=== PATIENT | male | born 1955 | race Caucasian/White ===

== ENCOUNTER → 2017-10-17 13:24 | Outpatient (CLI) | payer BC, SELFPAY ==
[2017-10-17 14:10] LABS: Basophils % 0.4 % (0.1-2.0); Eosinophils # 0.3 K/mm3 (0.0-0.4); Eosinophils % 3.5 % (0.1-12.0); Hematocrit 48.4 % (42.0-52.0); Hemoglobin 15.8 g/dL (14.1-18.0); Lymphocytes % 23.9 K/mm3 (10-50); Mean Corpuscular HGB Conc 32.7 g/dL (31.8-35.4); Mean Corpuscular Hemoglobin 30.4 pg (27.0-31.2); Mean Platelet Volume 8.7 fl (7.4-10.4); Monocytes # 0.6 K/mm3 (0.1-1.0); Monocytes % 6.8 % (1.7-9.3); Neutrophils # 5.5 K/mm3 (1.8-7.8); Neutrophils % 65.5 % (37.0-80.0); Platelet Count 269 K/mm3 (142-424); Red Cell Distribution Width 13.4 % (11.5-17.5); White Blood Count 8.4 K/mm3 (4.8-10.8)
[2017-10-17 14:15] LABS: Alanine Aminotransferase 13 U/L (12-78); Albumin Level 3.9 gm/dL (3.4-5.0); Alkaline Phosphatase 64 U/L (46-116); Anion Gap 12.1 mEq/L (5-15); Aspartate Amino Transferase 23 U/L (15-37); Bilirubin,Total 0.4 mg/dL (0.2-1.0); Blood Urea Nitrogen 16 mg/dL (7-18); Calcium 8.9 mg/dL (8.5-10.1); Carbon Dioxide 30 mmol/L (21.0-32.0); Chloride 102 mmol/L (98-107); Chol/HDL Ratio 6.3 (1-3.5); Cholesterol 265 mg/dL (140-200); Creatinine,Serum 0.99 mg/dL (0.70-1.30); Estimated Glomerular Filt Rate 77 ml/min (>60); GFR (African American) 93 ML/MIN (>60); Globulin 3.9 gm/dl (1.3-3.2); Glucose 101 mg/dL (74-106); HDL Cholesterol 42 mg/dL (27-67); LDL Cholesterol 175 mg/dL (0-130); Potassium 4.1 mmoL/L (3.5-5.1); Sodium 140 mmol/L (136-145); Total Protein,Serum 7.8 gm/dL (6.4-8.2); Triglycerides 239 mg/dL (30-200); VLDL Cholesterol 48 mg/dL (0-40)
== END ==
PROVIDERS: PCP Nurse Practitioner Family; Visit Provider Nurse Practitioner Family
DX: G20 Parkinson's disease (principal); I10 Essential (primary) hypertension
CPT/HCPCS: 36415; 80053; 80061; 85025

== ENCOUNTER → 2019-10-01 09:37 | Outpatient (CLI) | payer BC, SELFPAY ==
--- NOTE | 2019-10-01 09:54 | US_ITS ---
PROCEDURE: US SOFT TISSUE HEAD AND NECK CLINICAL INDICATION: SUPRCLAVICULAR FOSSA FULLNESS Palpable left neck mass COMPARISON: No exams were available for comparison FINDINGS: In the palpable area of the left neck there is an oval 4 x 3 x 1 cm area somewhat heterogeneous slight decreased echogenicity. This is nonspecific and may be due to a lipoma. No fluid collections or other significant anomalies are apparent. IMPRESSION: 4 x 3 x 1 cm area of heterogeneous echogenicity in the left neck which may be due to a lipoma. The sonographic findings are however nonspecific. Definitive evaluation could be performed with CT if clinically warranted Dictated b Hiram Pruitt MD 10/01/2019 16:53 Hiram Pruitt MD in [place] 10/01/2019 16:53
== END ==
PROVIDERS: PCP Nurse Practitioner Family; Visit Provider Nurse Practitioner Family
DX: R22.2 Localized swelling, mass and lump, trunk (principal)
CPT/HCPCS: 76536

== ENCOUNTER 2019-11-18 11:00 | Outpatient (RCR) | payer BC, SELFPAY ==
--- NOTE | 2019-09-09 10:04 | HMH.PTOPEV ---
PT Outpatient Evaluation Rehab PT Outpatient Evaluation Start: 09/09/19 09:09 Freq: Status: Active Protocol: Document 09/09/19 09:41 FOREIGN (Rec: 09/09/19 10:04 PHORSIMONE [id number]) Electronically Signed By Daniel Dumont, PT 09/09/19 09:41 Outpatient Therapy Subjective History Subjective History Pt is 63 yowm who presents with poor balance, difficulty with transfers, hx of falls, and difficulty ambulating due to Parkinson's disease. He was diagnosed with Parkinson's disease in 1994 and has had progressive decline since that time. He has hx of HTN, but otherwise appears healthy. Chief Complaint Stiff Symptoms Relieved By Nothing Symptoms Aggravated By Standing,Physical Activity, Walking Prior Functional Limitations Standing,Walking,Stairs, Balance Current Functional Limitations Standing,Walking,Stairs, Balance Symptom Description Constant but Variable Balance Eval Hx of Falls Hx Falls Yes Number in last 6 months 5 Gait/Posture Asssessment General Gait Observation Shuffling Step Assistive Devices None / NA Level of Transfer Assist Standby Assistance Hip Observation in Gait Swing Decreased Flexion Hip Observation in Gait Stance Excess Flexion Ankle/Foot Observation in Gait Swing Decreased Foot Clearance Ankle/Foot Observation in Gait Stance Early Heel Off,Decreased Heel Strike Body Alignment Posture Rigid Timed Up and Go Test 1. Is the Timed Up and Go test result > yes or = to 12 seconds? Dynamic Gait Index Test Protocol Gait Level Surface Moderate Impairement Query Text: Instructions: Walk at your normal speed from here to the next kaleb (20'). Grading: Kaleb the lowest category that applies. Change in Gait Speed Moderate Impairment Query Text: Instructions: Begin walking at your normal pace (for 5'), when I tell you go , walk as fast as you can (for 5'). When I tell you slow , walk as slowly as you can (for 5'). Grading: Kaleb the lowest category that applies. Gait with Horizontal Head Turns Moderate Impairment Query Text: Instructions: Begin walking at your normal pace. When I tell you to look right , keep walking straight, but turn you head to the right. Keep looking to the right unit I tell you look left , then keep walking str
--- NOTE | 2019-10-07 13:54 | HMH.RHREAS ---
Rehab Reassessment Rehab OP Re-assessment Start: 10/07/19 13:48 Freq: Status: Active Protocol: Document 10/07/19 13:51 FOREIGN (Rec: 10/07/19 13:54 FOREIGN [id number]) Electronically Signed By Daniel Dumont, PT 10/07/19 13:51 Rehab Re-assessment Subjective Subjective Pt reports he feels a little better with balance and walking. Objective Objective Notes DGI: 01/11 MMT B LE grossly 4+/5 throughout Gait: continued short stride B with shuffling, festinating gait pattern. Assessment Progress Assessment Progressing as Expected Assessment Notes Pt with improved mobility overall and longer stride lengths. Continues to need further work on upper/lower body dissociation. Patient goals met ST,2,[address],5,6 LT,2,3,4,5,6 Revised Goals none Plan Plan Continue per initial POC. Frequency of Therapy 2x/wk Duration of therapy 8 wks Time and Billing Re-Eval Time 15 Re-Eval Billing Units 1 PHYSICIAN CERTIFICATION: I certify the specified therapy services for Lauro Lora are required, authorized, and reviewed every 30 days.
== END 2019-11-18 11:05 | disposition home or self-care (01) ==
LOC: PT 11:00
PROVIDERS: PCP Nurse Practitioner Family; Visit Provider Nurse Practitioner Family
DX: G20 Parkinson's disease (principal); R29.6 Repeated falls
CPT/HCPCS: 97113; 97163; 97164

== ENCOUNTER 2020-01-08 13:01 | Emergency (ER) | payer BC, SELFPAY ==
[2020-01-08 14:25] VITALS: BP 145/78; PULSE 89; RESP 18; TEMP 36.9; O2SAT 98; BMI 41.0
--- NOTE | 2020-01-08 14:33 | HMH.EDUTC ---
[facility] [place] Clinical Impression: Exposure to COVID-19 virus, Viral syndrome Disposition: Home, Self-Care Condition on Discharge: Good Instructions: Preventing the Spread of Coronavirus Discharge Instructions Additional Instructions: Drink plenty of fluids. Take tylenol for pain or fever. Return if you begin to have difficulty breathing. Follow up with your regular doctor. GO TO THE ER FOR ANY WORSENING SYMPTOMS Referrals: Deedee Prince APRN [Primary Care Provider] - Time of Disposition: 14:39 Medical Decision Making - Medical Records Medical records reviewed: No: I reviewed the patient's medical records. - Joselito Inquiry Pt receiving controlled substance: No Vital Signs: 01/08/20 14:25 01/08/20 14:45 Temperature 98.4 F 98.4 F Temperature Source Oral Pulse Rate 89 Pulse Rate [Right Brachial] 89 Respiratory Rate 18 18 Blood Pressure 145/78 H Blood Pressure [Right Arm] 145/78 H Blood Pressure Mean [Right Arm] 100 Blood Pressure Source [Right Arm] Automatic Cuff Blood Pressure Position [Right Arm] Sitting 02 Sat by Pulse Oximetry 98 Oxygen Delivery Method Room Air Orders (Tests/Meds): ORDERS Category Date Time Status Covid-19 Nasal PCR ([facility]) Routine Lab 01/08/20 14:20 Received [facility] [place] HPI - General Stated complaint: Covid test Time Seen by Provider: 01/08/20 14:33 - History of Present Illness Provider Complaint: He denies any known exposure to covid-19. He has been having some sinus congestion for the past couple of days. - Related Data Home Medications Medication Instructions Recorded Confirmed Carbidopa/Levodopa 1 each PO DAILY 01/08/20 01/08/20 [Carbidopa/Levodopa 25/100mg Tablet] Venlafaxine HCl [Effexor XR 75mg 75 mg PO DAILY 01/08/20 01/08/20 capsule] Allergies Allergy/AdvReac Type Severity Reaction Status Date / Time No Known Allergies Allergy Verified 01/08/20 14:34 [facility] History - Hepatitis A Screen Attestation statement:: This patient has been screened for Hepatitis A risk factors. I have reviewed the patient's past medical history: Yes ROS Obtained: Yes All systems reviewed & no additional complaints - Constitutional Constitutional: Reports system reviewed and no additional complaints, except as docu - Eyes Eyes: Reports system reviewed and no additional complaints, except as docu - ENT Ears, Nose, Mouth, and Throat: Reports system reviewed and no additional complaints, except as docu - Cardiovascular Cardiovascular: Reports system reviewed and no additional complaints, except as docu - Respiratory Respiratory: Yes system reviewed and no additional complaints, except as docu - Gastrointestinal Gastrointestingal: Reports: system reviewed and no additional complaints, except as docu Physical Exam - General General appearance: alert, in no apparent distress - Head Head exam: atraumatic, normocephalic, normal inspection - Eye Eye exam: Present: normal appearance, PERRL, EOMI - ENT ENT exam: Present: normal exam, normal oropharynx, mucous membranes moist, TM's normal bilaterally, normal external ear exam - Neck Neck exam: Present: normal inspection, full ROM, trachea midline. Absent: meningismus, lymphadenopathy - Chest Chest inspection: Present: normal inspection, symmetric chest wall rise. Absent: tenderness - Respiratory Respiratory exam: Present: normal lung sounds bilaterally. Absent: respiratory distress - Cardiovascular Cardiovascular exam: Present: regular rate, normal rhythm. Absent: JVD - Abdominal Exam Abdominal exam: Present: soft, normal bowel sounds. Absent: distention, tenderness, guarding - Extremities Exam Extremities exam: Present: normal inspection, full ROM, normal capillary refill. Absent: calf tenderness - Back Exam Back exam: Present: normal inspection. Absent: tenderness - Neurological Exam Neurological exam: Present: alert, oriented X3
[2020-01-08 14:45] VITALS: BP 145/78; PULSE 89; RESP 18; TEMP 36.9; O2SAT 98
== END 2020-01-08 14:48 | disposition home or self-care (01) ==
PROVIDERS: Emergency Provider Nurse Practitioner Family; PCP Nurse Practitioner Family
DX: Z20.828 Contact with and (suspected) exposure to other viral communicable diseases (principal); B34.9 Viral infection, unspecified
CPT/HCPCS: 99201; U0003

== ENCOUNTER 2020-03-08 19:57 | Inpatient (IN) | payer BC, OTHER, SELFPAY ==
[2020-03-08 20:08] VITALS: BP 172/99; PULSE 108; RESP 18; TEMP 36.8; O2SAT 92; BMI 41.0
--- NOTE | 2020-03-08 20:22 | XR_ITS ---
PROCEDURE: XR CHEST PORTABLE CLINICAL HISTORY: cough Covid19 COMPARISON: No exams were available for comparison FINDINGS: There are low lung volumes with mild cardiomegaly. Patchy consolidation is present in the midlung zone on both sides. No obvious effusion. No acute bony abnormalities. IMPRESSION: Bilateral pneumonia Dictated by: Hiram Pruitt MD 03/09/2020 06:39 Hiram Pruitt MD in [place] 03/09/2020 06:39
--- NOTE | 2020-03-08 20:22 | CT_ITS ---
PROCEDURE: CT ANGIO CHEST CLINCIAL INDICATION: SOA Positive COVID Shortness of breath, Covid19 positive COMPARISON: CR XR CHEST PORTABLE from 03/08/2020 TECHNIQUE: IV Contrast: 70ML Isovue 370 Axial images obtained with sagittal and coronal reformats. All CT scans at the facility use one or more dose reduction, viz: automated exposure control, ma/kV adjustment per patient size (including targeted exams where dose is matched to indication, i.e. head), or iterative reconstruction technique. FINDINGS: HEART AND MEDIASTINAL STRUCTURES: No evidence of pulmonary embolus, aortic aneurysm, or aortic dissection. Small right paratracheal lymph node at 1.3 cm LUNGS AND PLEURAL SPACES: Multi focal bilateral areas of ground-glass infiltrate in both upper and lower lobes in keeping with Covid19 pneumonia. No effusions BONY STRUCTURES: No acute bony abnormalities apparent. UPPER ABDOMEN: Unremarkable. ADDITIONAL FINDINGS: No other significant abnormalities. IMPRESSION: 1. No evidence of pulmonary embolus. 2. Multifocal bilateral ground-glass infiltrates consistent with Covid19 pneumonia Dictated by: Hiram Pruitt MD 03/09/2020 07:35 Hiram Pruitt MD in [place] 03/09/2020 07:35
[2020-03-08 20:30] VITALS: BP 176/80; PULSE 96; RESP 15; O2SAT 90
[2020-03-08 20:30] LABS: Basophils # 0.1 K/mm3 (0-0.2); Basophils % 0.4 % (0.1-2.0); Eosinophils # 0.1 K/mm3 (0.0-0.4); Eosinophils % 0.4 % (0.1-12.0); Hemoglobin 16.4 g/dL (14.1-18.0); Lymphocytes # 1.4 K/mm3 (0.7-4.5); Lymphocytes % 6.9 % (10-50); Mean Corpuscular HGB Conc 34.1 g/dL (31.8-35.4); Mean Corpuscular Hemoglobin 31.2 pg (27.0-31.2); Mean Corpuscular Volume 91.5 fl (80-94); Mean Platelet Volume 9.8 fl (7.4-10.4); Monocytes # 1.4 K/mm3 (0.1-1.0); Monocytes % 6.6 % (1.7-9.3); Neutrophils # 17.4 K/mm3 (1.8-7.8); Neutrophils % 85.7 % (37.0-80.0); Platelet Count 280 K/mm3 (142-424); Red Blood Count 5.25 M/mm3 (4.60-6.20); Red Cell Distribution Width 14.2 % (11.5-17.5); White Blood Count 20.3 K/mm3 (4.8-10.8)
[2020-03-08 20:35] LABS: Alanine Aminotransferase 20 U/L (12-78); Albumin Level 4.1 g/dl (3.5-5.0); Albumin/Globulin Ratio 1.1 (1.1-1.8); Alkaline Phosphatase 74 U/L (38-126); Anion Gap 13.8 mEq/L (5-15); Aspartate Amino Transferase 34 U/L (17-59); Bilirubin,Total 0.7 mg/dl (0.2-1.3); Blood Urea Nitrogen 29 mg/dl (9-20); Calcium 8.9 mg/dl (8.4-10.2); Carbon Dioxide 28 mmol/L (22.0-30.0); Chloride 98 mmol/L (98-107); Creatinine Clearance Estimated 131 mL/min (50-200); Estimated Glomerular Filt Rate 98 ml/min (>60); GFR (African American) 118 ML/MIN (>60); Globulin 3.8 g/dL (1.3-3.2); Glucose 100 mg/dl (74-100); Potassium 3.8 mmoL/L (3.5-5.1); Sodium 136 mmol/L (136-145); Total Protein,Serum 7.9 g/dl (6.3-8.2)
[2020-03-08 20:40] LABS: C-Reactive Protein 59.9 mg/L (0-4)
[2020-03-08 20:41] LABS: MANUAL DIFFERENTIAL MANUAL DIFFERENTIAL (MANUAL DIFF)
--- NOTE | 2020-03-08 20:52 | HMH.EDSOB ---
ED Disposition Clinical Impression: Pneumonia due to COVID-19 virus, Hypoxia, Parkinson disease Obesity Qualifiers: Obesity type: due to excess calories Obesity classification: adult class 3 (BMI >= 40) Serious obesity comorbidity presence: with serious comorbidity Body mass index: BMI 40.0-44.9 Qualified Code(s): E66.01 - Morbid (severe) obesity due to excess calories; Z68.41 - Body mass index [BMI]40.0-44.9, adult Disposition: Admitted As Inpatient Condition on Discharge: Serious - Critical Care Critical Care Time: No Attestation: On 03/08/20, the high probability of a clinically significant, sudden or life threatening deterioration of the following system(s) required my full and direct attention, intervention and personal management. The time I documented below is in addition to time spent performing reported procedures but includes the following listed in this critical care notation. Medical Decision Making - Medical Records Medical records reviewed: Yes: I reviewed the patient's medical records. - Joselito Inquiry Pt receiving controlled substance: No Vital Signs: 03/08/20 20:08 03/08/20 20:30 03/08/20 21:00 Temperature 98.2 F Temperature Source Oral Pulse Rate [Right] 108 H 96 H 81 Respiratory Rate 18 15 15 Blood Pressure [Right Arm] 172/99 H 176/80 H 152/91 H Blood Pressure Mean [Right Arm] 123 112 111 Blood Pressure Source [Right Arm] Automatic Cuff Automatic Cuff Automatic Cuff Blood Pressure Position [Right Arm] Supine Supine Supine 02 Sat by Pulse Oximetry 92 L 90 L 89 L Oxygen Delivery Method Room Air Room Air Room Air Oxygen Flow Rate (LPM) 03/08/20 22:30 03/08/20 23:00 03/08/20 23:30 Temperature Temperature Source Pulse Rate [Right] 86 78 77 Respiratory Rate 16 17 17 Blood Pressure [Right Arm] 141/85 H 136/82 125/78 Blood Pressure Mean [Right Arm] 103 100 93 Blood Pressure Source [Right Arm] Automatic Cuff Automatic Cuff Automatic Cuff Blood Pressure Position [Right Arm] Supine Supine Supine 02 Sat by Pulse Oximetry 97 95 95 Oxygen Delivery Method Nasal Cannula Nasal Cannula Nasal Cannula Oxygen Flow Rate (LPM) 2 2 2 03/09/20 00:00 Temperature Temperature Source Pulse Rate [Right] 78 Respiratory Rate 17 Blood Pressure [Right Arm] 130/75 Blood Pressure Mean [Right Arm] 93 Blood Pressure Source [Right Arm] Automatic Cuff Blood Pressure Position [Right Arm] Supine 02 Sat by Pulse Oximetry 94 L Oxygen Delivery Method Nasal Cannula Oxygen Flow Rate (LPM) 2 - Lab Data Lab results reviewed: Yes: I reviewed the patient's lab results. Lab Results 03/08/20 20:05: WBC 20.3 H*, RBC 5.25, Hgb 16.4, Hct 48.0, MCV 91.5, MCH 31.2, MCHC 34.1, RDW 14.2, Plt Count 280, MPV 9.8, Neut % (Auto) 85.7 H, Lymph % (Auto) 6.9 L, [place] % (Auto) 6.6, Eos % (Auto) 0.4, Baso % (Auto) 0.4, Neut # (Auto) 17.4 H, Lymph # (Auto) 1.4, [place] # (Auto) 1.4 H, Eos # (Auto) 0.1, Baso # (Auto) 0.1, Total Counted 100, Neutrophils % (Manual) 87 H, Lymphocytes % (Manual) 7 L, Monocytes % (Manual) 6, Platelet Estimate Normal, RBC Morphology Normal, ESR 9 03/08/20 20:05: Sodium 136, Potassium 3.8, Chloride 98, Carbon Dioxide 28, Anion Gap 13.8, BUN 29 H, Creatinine 0.80, Estimated Creat Clear 131, Estimated GFR 98, Est GFR ( Amer) 118, Glucose 100, Calcium 8.9, Total Bilirubin 0.7, AST 34, ALT 20, Alkaline Phosphatase 74, C-Reactive Protein 59.9 H, Total Protein 7.9, Albumin 4.1, Globulin 3.8 H, Albumin/Globulin Ratio 1.1, Procalcitonin 0.076 03/08/20 20:05: SARS-CoV-2 IgG Ab (Rapid) Positive A, SARS-CoV-2 IgM Ab (Rapid) Negative 03/08/20 22:30: Chlamy pneumoniae PCR Not detected, Adenovirus (PCR) Not detected, B. pertussis DNA (PCR) Not detected, Coronavirus OC43 (PCR) Not detected, Coronavirus HKU1 (PCR) Not detected, Coronavirus 229E (PCR) Not detected, SARS-CoV-2 (PCR) Detected A, Coronavirus NL63 (PCR) Not detected, Human Metapneumovir PCR Not detected, Influenza A (H1) PCR Not detected, Influ A (H1N1/09) PCR Not d
[2020-03-08 20:53] LABS: Procalcitonin 0.076 ng/mL (0.0-2.0)
[2020-03-08 20:57] LABS: Erythrocyte Sedimentation Rate 9 mm/hr (0-20)
[2020-03-08 21:00] VITALS: BP 152/91; PULSE 81; RESP 15; O2SAT 89
[2020-03-08 21:07] LABS: Lymphocytes % 7 % (10-50); Monocytes % 6 % (2-9); Neutrophils % 87 % (42-76); Platelet Estimate Normal; RBC Morphology Normal; Total Cells Counted 100
[2020-03-08 22:13] LABS: Coronavirus 19 IgG Antibody Positive (Negative); Coronavirus 19 IgM Antibody Negative (Negative)
[2020-03-08 22:30] VITALS: BP 141/85; PULSE 86; RESP 16; O2SAT 97
--- NOTE | 2020-03-08 22:30 | PC.NURSE ---
nasal swab for inpatient covid swab completed and sent to lab
[2020-03-08 22:34] LABS: Adenovirus,PCR Not Detected (NotDetected); Bordetella Pertussis Not Detected (NotDetected); Chlamydophila Pneumoniae, PCR Not Detected (NotDetected); Coronavirus 229E Not Detected (NotDetected); Coronavirus NL63 Not Detected (NotDetected); Coronavirus OC43 Not Detected (NotDetected); Coronovirus HKU1,PCR Not Detected (NotDetected); Human Metapneumovirus Not Detected (NotDetected); Influenza A, PCR Not Detected (NotDetected); Influenza AH1, 2009 Not Detected (NotDetected); Influenza AH1, PCR Not Detected (NotDetected); Influenza AH3,PCR Not Detected (NotDetected); Influenza B, PCR Not Detected (NotDetected); Mycoplasma Pneumoniae, PCR Not Detected (NotDetected); Parainfluenza 1, PCR Not Detected (NotDetected); Parainfluenza 2, PCR Not Detected (NotDetected); Parainfluenza 3, PCR Not Detected (NotDetected); Parainfluenza 4, PCR Not Detected (NotDetected); Respiratory Syncytial Virus Not Detected (NotDetected); Rhinovirus/Enterovirus Not Detected (NotDetected)
--- NOTE | 2020-03-08 22:34 | PC.NURSE ---
Password was set up with it is Monkey
--- NOTE | 2020-03-08 22:34 | PC.NURSE ---
called for bed assignment for patient. spoke with ken ramoscharge rn.
[2020-03-08 23:00] VITALS: BP 136/82; PULSE 78; RESP 17; O2SAT 95
[2020-03-08 23:30] VITALS: BP 125/78; PULSE 77; RESP 17; O2SAT 95
[2020-03-09] VITALS (9 sets, daily range): BP systolic 130–155; BP diastolic 70–96; PULSE 73–93; RESP 15–22; TEMP 36.4–37.1; O2SAT 92–98; BMI 40.9
[2020-03-09] LABS: Coronavirus 19, PCR Detected (NotDetected)
--- NOTE | 2020-03-09 00:21 | PC.NURSE ---
patient up to floor via wheelchair.
[2020-03-09 05:38] LABS: Basophils % 0.1 % (0.1-2.0); Hematocrit 43.7 % (42.0-52.0); Lymphocytes # 0.6 K/mm3 (0.7-4.5); Lymphocytes % 3.1 % (10-50); Mean Corpuscular HGB Conc 34.3 g/dL (31.8-35.4); Mean Corpuscular Volume 93.1 fl (80-94); Mean Platelet Volume 10.4 fl (7.4-10.4); Monocytes % 4.9 % (1.7-9.3); Neutrophils # 18.6 K/mm3 (1.8-7.8); Neutrophils % 91.8 % (37.0-80.0); Platelet Count 244 K/mm3 (142-424); Red Cell Distribution Width 14.3 % (11.5-17.5); White Blood Count 20.3 K/mm3 (4.8-10.8)
[2020-03-09 05:42] LABS: MANUAL DIFFERENTIAL MANUAL DIFFERENTIAL (MANUAL DIFF)
[2020-03-09 05:43] LABS: Chloride 100 mmol/L (98-107); Potassium 3.8 mmoL/L (3.5-5.1); Sodium 135 mmol/L (136-145)
[2020-03-09 05:45] LABS: Blood Urea Nitrogen 24 mg/dl (9-20); Creatinine Clearance Estimated 131 mL/min (50-200); Estimated Glomerular Filt Rate 114 ml/min (>60); GFR (African American) 138 ML/MIN (>60)
[2020-03-09 05:46] LABS: Alanine Aminotransferase 14 U/L (12-78); Albumin Level 3.5 g/dl (3.5-5.0); Albumin/Globulin Ratio 1.1 (1.1-1.8); Alkaline Phosphatase 67 U/L (38-126); Anion Gap 8.8 mEq/L (5-15); Aspartate Amino Transferase 33 U/L (17-59); Bilirubin,Total 0.6 mg/dl (0.2-1.3); Calcium 8.5 mg/dl (8.4-10.2); Carbon Dioxide 30 mmol/L (22.0-30.0); Globulin 3.2 g/dL (1.3-3.2); Glucose 153 mg/dl (74-100); Magnesium 2.1 mg/dl (1.6-2.3); Total Protein,Serum 6.7 g/dl (6.3-8.2)
--- NOTE | 2020-03-09 06:17 | PC.NURSE ---
Pt is A&Ox4. Pt has remained on 2L NC w/ o2 sats between 92-93%. Bilat upper lobes present w/ inspiratory and expiratory wheezing. Bilat lower lobes present with inspiratory and expiratory rhonchi. Breathing is even and nonlabored. +1 pitting edema at bilat ankles. Active bowel sounds in all 4 quads. No BM noted this shift. PIV remains patent and continues to infuse NS @ 50 ml/hr. No acute changes or complaints.
--- NOTE | 2020-03-09 07:24 | HMH.PHAVTE ---
[facility] Pharmacy VTE Monitoring - Patient Demographics Admission date: 03/08/20 Report Date: 03/09/20 Time: 07:24 Allergies/Adverse Reactions: Patient Allergies No Known Allergies Allergy (Verified 01/08/20 14:34) Height: 1.73 m Weight: 122.215 kg Patient Problems: Current Active Problems Pneumonia due to COVID-19 virus (Acute) Hypoxia (Acute) Parkinson disease (Acute) Obesity (Acute) - VTE Risk Labs: VTE Related Lab Results Hgb 15.0 g/dL (14.1-18.0) 03/09/20 04:20 Hct 43.7 % (42.0-52.0) 03/09/20 04:20 Plt Count 244 K/mm3 (142-424) 03/09/20 04:20 BUN 24 mg/dl (9-20) H 03/09/20 04:20 Creatinine 0.70 mg/dl (0.66-1.25) 03/09/20 04:20 Estimated Creat Clear 131 mL/min (50-200) 03/09/20 04:20 VTE Score: 4 VTE Risk Level: Low Risk - Prophylaxis VTE Prophylaxis Ordered?: Yes Types of VTE Prophylaxis: TEDS Knee High, Pharmacological Location of Applied Device: Bilateral Lower Extremeties Pharmacologic Type: Enoxaparin
--- NOTE | 2020-03-09 08:25 | HMH.HP ---
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 He worsened and had lots of shortness of air, came to the emergency department, had new oxygen requirement and was admitted to hospital for oxygenation, fluids and further diagnostic testing and respiratory support. [facility] History Medical History: Reports:: Hyperlipidemia, Hypertension Denies:: Cancer, Diabetes Mellitus Type 1, Diabetes Mellitus Type 2, MRSA *Have you ever received a pneumonia vaccine?: No *Have you received a flu vaccine this season?: No Comment:: Parkinson's disease. Major depression with multiple psychiatric comorbidities Other Surgeries: Yes: No Previous Surgery Amputation: No - *Social History Last grade of school completed: Some college Smoking Status: Never smoker Alcohol Intake: former Alcohol Intake Frequency:: holidays/special occasions only *Occupational Status:: disabled Household Members: significant other *Travel in the last 8 weeks: None Family Hx:: Cancer, Coronary Artery Disease, Diabetes, Hypertension, Stroke Review of Systems - Review of Systems Review of systems:: pertinent systems reviewed and negative unless documented below - Constitutional Reports anorexia, Reports fatigue, Reports fever(s) - ENT Reports dizziness, Reports dry mouth, Denies abnormal hearing, Denies poor balance - *Cardiovascular Reports shortness of breath, Reports shortness of breath with activity, Denies chest pain, Denies irregular heart rhythm - *Respiratory Reports chest congestion, Reports cough, Reports shortness of breath with activity, Denies coughing up blood - *Gastrointestinal Reports loose stools, Denies abdominal pain - *Genitourinary Denies difficulty urinating - *Neurologic Reports weakness, Denies localized weakness, Denies headache(s) Meds Home Medications Medication Instructions Recorded Confirmed Type Carbidopa/Levodopa 2 each PO TID 01/08/20 03/08/20 History [Carbidopa/Levodopa 25/100mg Tablet] Venlafaxine HCl [Effexor XR 75mg 150 mg PO DAILY 01/08/20 03/08/20 History capsule] Amoxicillin [Amoxicillin 875MG 875 mg PO Q12H 03/08/20 03/08/20 History Tab] Benzonatate [Benzonatate 200mg Cap] 225 mg PO TID PRN 03/08/20 03/08/20 History Ergocalciferol (Vitamin D2) 1,250 mcg PO BID 03/08/20 03/08/20 History [Vitamin D2] dexAMETHasone [Decadron 4mg tablet] 4 mg PO BID 03/08/20 03/08/20 History Allergies Allergy/AdvReac Type Severity Reaction Status Date / Time No Known Allergies Allergy Verified 01/08/20 14:34 Exam Vital signs and Labs for Last 24 Hours: Temp Pulse Resp BP Pulse Ox 98.7 F 93 H 22 144/78 H 93 L 03/09/20 08:00 03/09/20 08:00 03/09/20 08:00 03/09/20 08:00 03/09/20 08:00 Laboratory Results - last 24 hr 03/08/20 20:05: WBC 20.3 H*, RBC 5.25, Hgb 16.4, Hct 48.0, MCV 91.5, MCH 31.2, MCHC 34.1, RDW 14.2, Plt Count 280, MPV 9.8, Neut % (Auto) 85.7 H, Lymph % (Auto) 6.9 L, [place] % (Auto) 6.6, Eos % (Auto) 0.4, Baso % (Auto) 0.4, Neut # (Auto) 17.4 H, Lymph # (Auto) 1.4, [place] # (Auto) 1.4 H, Eos # (Auto) 0.1, Baso # (Auto) 0.1, Total Counted 100, Neutrophils % (Manual) 87 H, Lymphocytes % (Manual) 7 L, Monocytes % (Manual) 6, Platelet Estimate Normal, RBC Morphology Normal, ESR 9 03/08/20 20:05: Sodium 136, Potassium 3.8, Chloride 98, Carbon Dioxide 28, Anion Gap 13.8, BUN 29 H, Creatinine 0.80, Estimated Creat Clear 131, Estimated GFR 98, Est GFR ( Amer) 118, Glucose 100, Calcium 8.9, Total Bilirubin 0.7, AST 34, ALT 20, Alkaline Phosphatase 74, C-Reactive Protein 59.9 H, Total Protein 7.9, Albumin 4.1, Globulin 3.8 H, Albumin/Globulin Ratio 1.
[2020-03-09 09:12] LABS: Lymphocytes % 3 % (10-50); Monocytes % 4 % (2-9); Neutrophils % 93 % (42-76); RBC Morphology Normal; Total Cells Counted 100
[2020-03-09 09:13] LABS: Platelet Estimate Normal
--- NOTE | 2020-03-09 12:17 | HMH.PHAINT ---
MEDICATION RECONCILIATION COMPLETED ON PATIENT USING EXTERNAL FILL HISTORY FROM PHARMACY. -PIERO HANSON, BEAUD
--- NOTE | 2020-03-09 19:00 | PC.NURSE ---
A&OX4. PT HAS TOLERATED 2L NC WELL THROUGHOUT SHIFT. RHONCHI NOTED THROUGHOUT. NO COUGH NOTED. RESPIRATIONS REGULAR AND UNLABORED. HAND EMBEDDED SYSTEMS DEVELOPER EQUAL. +2 PULSES NOTED THROUGHOUT. NO EDEMA NOTED. PT RECEIVED SEVERAL ANTIBIOTICS THIS SHIFT AND TOLERATED ALL WELL. ACTIVE BOWEL SOUNDS HEARD IN ALL 4 QUADRANTS. SOFT AND NONTENDER ABDOMEN. PT HAS HAD 2 SOFT BROWN BMS THIS SHIFT. PT VOIDS PER TOILET W STANDBY ASSISTANCE. CLEAR YELLOW URINE NOTED. NO REPORTS OF PAIN THROUGHOUT SHIFT. PT SAT UP TO THE CHAIR SEVERAL TIMES THROUGHOUT SHIFT. BED IN LOWEST POSITION. CALL LIGHT WITHIN REACH. VSS. WILL CONTINUE TO MONITOR.
--- NOTE | 2020-03-09 22:54 | PC.NURSE ---
2100 COURTESY ROUND TRASH EMPTIED AND GLOVES REFILLED.
[2020-03-10] VITALS: BP 124/62; PULSE 88; RESP 19; TEMP 36.7; O2SAT 94
[2020-03-10 04:00] VITALS: BP 154/90; PULSE 90; RESP 19; TEMP 36.7; O2SAT 93
[2020-03-10 05:17] VITALS: BMI 40.8
--- NOTE | 2020-03-10 05:22 | PC.NURSE ---
pt is alert and oriented. ambulates with standby assist. remains stable on 2LNC. iv patent and infusing per order. vss. no complaints voiced. slept through most of shift. call light in reach. will continue to monitor pt condition.
--- NOTE | 2020-03-10 06:57 | PC.NURSE ---
0600 COURTESY ROUND TRASH EMPTIED AND WATER REFILLED
[2020-03-10 07:06] LABS: Alanine Aminotransferase 18 U/L (12-78); Albumin Level 3.7 g/dl (3.5-5.0); Albumin/Globulin Ratio 1.1 (1.1-1.8); Alkaline Phosphatase 69 U/L (38-126); Anion Gap 11.7 mEq/L (5-15); Aspartate Amino Transferase 46 U/L (17-59); Bilirubin,Total 0.7 mg/dl (0.2-1.3); Blood Urea Nitrogen 25 mg/dl (9-20); Calcium 8.5 mg/dl (8.4-10.2); Carbon Dioxide 28 mmol/L (22.0-30.0); Chloride 98 mmol/L (98-107); Creatinine Clearance Estimated 131 mL/min (50-200); Estimated Glomerular Filt Rate 114 ml/min (>60); GFR (African American) 138 ML/MIN (>60); Globulin 3.3 g/dL (1.3-3.2); Glucose 90 mg/dl (74-100); Potassium 3.7 mmoL/L (3.5-5.1); Sodium 134 mmol/L (136-145)
[2020-03-10 07:45] VITALS: BP 152/97; PULSE 91; RESP 24; TEMP 37.6; O2SAT 92
--- NOTE | 2020-03-10 08:44 | HMH.DCSUM ---
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 He worsened and had lots of shortness of air, came to the emergency department, had new oxygen requirement and was admitted to hospital for oxygenation, fluids and further diagnostic testing and respiratory support. Hospital Course Hospital Course: Patient was admitted, placed on standard COVID-19 protocols. Patient did well and when I examined him yesterday evening was sitting on the side of the bed, feeling good with oxygen and feeling much better than he had in weeks. He was watched overnight, fluids and oxygen were given. This morning he is doing well, nurses report that he requires a little bit of standby assist when he stands up but is able to do most of his ADLs. Certainly has Parkinson's disease complicates his status. Patient is cleared for discharge and wishes to go home. He will be discharged with azithromycin, dexamethasone and vitamin therapy. He will follow-up in our office in 1 week. He will continue on oxygen therapy for his Covid pneumonitis and hypoxia. Objective Vital signs: Temp Pulse Resp BP Pulse Ox 99.7 F H 91 H 24 152/97 H 92 L 03/10/20 07:45 03/10/20 07:45 03/10/20 07:45 03/10/20 07:45 03/10/20 07:45 Narrative: Patient is pleasant, masked facies compromises his neuro exam no acute distress - *Routine HEENT Exam Head: Present: normocephalic Eye: Present: EOMI, PERRL ENT: Present: mucous membranes moist - *Routine Neck Exam Present: supple - *Routine Respiratory Exam Present: rhonchi - *Routine Cardiovascular Exam Present: RRR - *Routine Abdominal Exam Present: soft, normoactive bowel sounds. Absent: tenderness - *Routine Extremities Exam Absent: cyanosis, clubbing, edema - *Routine Skin Exam Present: warm. Absent: rash - *Routine Neurological Exam Present: alert Patient is stiff, some cogwheeling, but at baseline from his parkinsonism - Detailed Eye Exam Eyelids: Bilateral normal inspection Results Labs on day of discharge: Labs from last 24 hours 03/10/20 03/09/20 06:35 04:20 Total Counted 100 Neutrophils % (Manual) 93 H Lymphocytes % (Manual) 3 L Monocytes % (Manual) 4 Platelet Estimate Normal RBC Morphology Normal Sodium 134 L Potassium 3.7 Chloride 98 Carbon Dioxide 28 Anion Gap 11.7 BUN 25 H Creatinine 0.70 Estimated Creat Clear 131 Estimated GFR 114 Est GFR ( Amer) 138 Glucose 90 Calcium 8.5 Total Bilirubin 0.7 AST 46 D ALT 18 D Alkaline Phosphatase 69 Total Protein 7.0 Albumin 3.7 Globulin 3.3 H Albumin/Globulin Ratio 1.1 DS: Diagnosis - Discharge Diagnosis (1) Hypoxia Status: Acute (2) Obesity Status: Chronic (3) Parkinson disease Status: Chronic (4) Pneumonia due to COVID-19 virus Status: Acute Discharge Plan - Patient Discharge Instructions ACTIVITY: Continue current activity DIET: continue same diet Patient Instructions: Pneumonia-Adult, DI for COVID-19 (Suspected or Confirmed ), Preventing the Spread of Coronavirus Discharge Instructions - Follow up Plan Follow up with: Deedee Prince APRN [Primary Care Provider] - 1 week Disposition: Home Health Service Home Medications: Home Medications Medication Instructions Recorded Confirmed Type Carbidopa/Levodopa 2 each PO TID 01/08/20 03/08/20 History [Carbidopa/Levodopa 25/100mg Tablet] Venlafaxine HCl [Effexor XR 75mg 225 mg PO DAILY 01/08/20 03/09/20 History capsule] Amoxicillin [Amoxicillin 875MG 875 mg PO Q12H 03/08/20 03/08/20 History Tab] Be
--- NOTE | 2020-03-10 10:08 | SW/DCPLANNER ---
Addendum entered by Joanne Lewis 03/10/20 10:49: [facility] HAS ACCEPTED THE REFERRAL... INFORMATION AND ORDERS WERE SENT.... Original Note: PATIENT IS DISCHARGING HOME TODAY AND IS REQUIRING HOME 02... THIS WAS SET UP PER CHOICE WITH [facility].. HE HAS A HOME HEALTH ORDER IN AND IS A COMMERCIAL INSURANCE.. I HAVE ASKED A COUPLE OF DIFFERENT AGENCIES TO SEE IF THEY CAN TAKE HIM SINCE HE IS COVID POSITIVE AND NOT ALL AGENCIES HAS A CONTRACT WITH HIS ANTHEM, WAITING TO HEAR BACK...WILL DISCHARGE HOME LATER IN THE AM...
--- NOTE | 2020-03-10 11:02 | PC.NURSE ---
THIS RN ASSESSED PATIENT O2 STATS ON ROOM AIR, PATIENT READ AT 83%. THIS RN APPLIED OXYGEN AND PATIENT READ AT 91% ON 3L NC.
[2020-03-10 12:00] VITALS: BP 159/96; PULSE 91; RESP 21; TEMP 37.1; O2SAT 94
--- NOTE | 2020-03-10 15:10 | PC.NURSE ---
THIS RN PROVIDED D/C INSTRUCTIONS TO PATIENT. PATIENT VERBALIZED AN UNDERSTANDING. THIS RN PROVIDED EDUCATION ON PATIENT PORTABLE O2 TANK. PATIENT VERBALIZED AN UNDERSTANDING. NO NEW CONCERNS AT THIS TIME
== END 2020-03-10 14:25 | disposition home health service (06) | DRG 177 ==
LOC: ER 20:00 → 2ND 03-09 00:02
PROVIDERS: Emergency Medicine; Admitting Provider Family Medicine; Emergency Provider Emergency Medicine; PCP Nurse Practitioner Family; Visit Provider Internal Medicine Adolescent Medicine
DX: U07.1 COVID-19 (principal); J12.82 Pneumonia due to coronavirus disease 2019; J96.01 Acute respiratory failure with hypoxia; Z68.41 Body mass index [BMI] 40.0-44.9, adult; G20 Parkinson's disease; E66.01 Morbid (severe) obesity due to excess calories; Z79.899 Other long term (current) drug therapy; F60.9 Personality disorder, unspecified
CPT/HCPCS: 71045; 71275; 80053; 83735; 84145; 85007; 85025; 85651; 86140; 86328; 87581; 87633; 87798; 96365; 96375; 99284; Q9967; U0003

== ENCOUNTER 2020-03-13 15:30 | Inpatient (IN) | payer BC, OTHER, SELFPAY ==
[2020-03-13] VITALS (17 sets, daily range): BP systolic 126–157; BP diastolic 76–103; PULSE 80–114; RESP 20–35; TEMP 36.5–37.6; O2SAT 62–96; BMI 41.0; BMI 40.1
--- NOTE | 2020-03-13 15:50 | XR_ITS ---
PROCEDURE: XR CHEST PORTABLE CLINICAL HISTORY: dyspnea/hypoxia COMPARISON: CR XR CHEST PORTABLE from 03/08/[address] ANGIO CHEST from 03/08/[address] ANGIO CHEST from 03/13/2020 FINDINGS: The cardiomediastinal silhouette and pulmonary vascularity are within normal limits. Pneumonia present in the right upper lobe, right infrahilar region and left upper and left lower lobe. These findings have progressed since the previous exam. No evidence of pneumothorax. No acute bony abnormalities. IMPRESSION: Worsening bilateral pneumonia Dictated by: Hiram Pruitt MD 03/14/2020 06:35 Hiram Pruitt MD in [facility] 03/14/2020 06:35
--- NOTE | 2020-03-13 16:07 | HMH.EDSOB ---
ED Disposition Clinical Impression: Pulmonary emboli Qualifiers: Pulmonary embolism type: multiple subsegmental (without acute cor pulmonale) Qualified Code(s): I26.94 - Multiple subsegmental pulmonary emboli without acute cor pulmonale Respiratory failure Qualifiers: Chronicity: acute Respiratory failure complication: hypoxia Qualified Code(s): J96.01 - Acute respiratory failure with hypoxia Disposition: Admitted As Inpatient Condition on Discharge: Critical Referrals: Aden Astorga MD [Primary Care Provider] - - Critical Care Critical Care Time: Yes Attestation: On 03/13/20, the high probability of a clinically significant, sudden or life threatening deterioration of the following system(s) required my full and direct attention, intervention and personal management. The time I documented below is in addition to time spent performing reported procedures but includes the following listed in this critical care notation. Total Critical Care Time: 30 Vital system(s) involved:: Respiratory Failure My critical care processes included: Assessment & monitoring of V/S, Initial and Re-exams, Data Review/Interpretation, Coordinating Care, Medication Orders and management, Documentation Medical Decision Making - Medical Records Medical records reviewed: Yes: I reviewed the patient's medical records. - Joselito Inquiry Pt receiving controlled substance: No Vital Signs: 03/13/20 15:31 03/13/20 15:50 03/13/20 16:01 Temperature 97.7 F Temperature Source Oral Pulse Rate [Left Radial] 100 H 88 Respiratory Rate 25 H Blood Pressure [Right Arm] 126/87 148/80 H Blood Pressure Mean [Right Arm] 100 102 Blood Pressure Source [Right Arm] Automatic Cuff Automatic Cuff Blood Pressure Position [Right Arm] Sitting Sitting 02 Sat by Pulse Oximetry 68 L 88 L 92 L Oxygen Delivery Method Nasal Cannula Non-Rebreather Vapotherm Oxygen Flow Rate (LPM) 4 40 03/13/20 16:30 03/13/20 16:38 03/13/20 17:00 Temperature Temperature Source Pulse Rate [Left Radial] 91 H 88 Respiratory Rate Blood Pressure [Right Arm] 134/90 144/85 H Blood Pressure Mean [Right Arm] 104 104 Blood Pressure Source [Right Arm] Automatic Cuff Automatic Cuff Blood Pressure Position [Right Arm] Sitting Sitting 02 Sat by Pulse Oximetry 93 L 96 92 L Oxygen Delivery Method Vapotherm Vapotherm Vapotherm Oxygen Flow Rate (LPM) 40 40 40 03/13/20 17:45 03/13/20 18:02 03/13/20 18:18 Temperature Temperature Source Pulse Rate [Left Radial] 97 H 101 H Respiratory Rate Blood Pressure [Right Arm] 157/99 H 149/93 H Blood Pressure Mean [Right Arm] 118 111 Blood Pressure Source [Right Arm] Automatic Cuff Automatic Cuff Blood Pressure Position [Right Arm] Sitting Sitting 02 Sat by Pulse Oximetry 85 L 88 L 86 L Oxygen Delivery Method Vapotherm Vapotherm Vapotherm Oxygen Flow Rate (LPM) 40 - Lab Data Lab Results 03/13/20 15:53: Sodium 136, Potassium 3.3 L, Chloride 97 L, Carbon Dioxide 32 H, Anion Gap 10.3, BUN 18, Creatinine 0.70, Estimated Creat Clear 131, Estimated GFR 114, Est GFR ( Amer) 138, Glucose 107 H, Calcium 8.6, Total Bilirubin 1.1, AST 45, ALT 12, Alkaline Phosphatase 87, Troponin I < 0.01, Total Protein 7.4, Albumin 3.6, Globulin 3.8 H, Albumin/Globulin Ratio 0.9 L 03/13/20 15:53: Lactate 2.5 H 03/13/20 15:53: NT-Pro-B Natriuret Pep 289 H 03/13/20 15:53: Procalcitonin 0.109 03/13/20 15:53: D-Dimer 5.38 H 03/13/20 16:22: WBC 18.2 H, RBC 5.54, Hgb 16.8, Hct 50.6, MCV 91.2, MCH 30.3, MCHC 33.2, RDW 14.1, Plt Count 316, MPV 8.6, Neut % (Auto) 89.2 H, Lymph % (Auto) 4.6 L, [place] % (Auto) 4.4, Eos % (Auto) 1.2, Baso % (Auto) 0.6, Neut # (Auto) 16.2 H, Lymph # (Auto) 0.8, [place] # (Auto) 0.8, Eos # (Auto) 0.2, Baso # (Auto) 0.1, Total Counted 100, Neutrophils % (Manual) 85 H, Lymphocytes % (Manual) 8 L, Monocytes % (Manual) 7, Platelet Estimate Normal, RBC Morphology Normal 03/13/20 16:22: ESR 6 03/13/20 16:28: VBG pH 7.43 H, VBG p
[2020-03-13 16:24] LABS: Alanine Aminotransferase 12 U/L (12-78); Albumin Level 3.6 g/dl (3.5-5.0); Albumin/Globulin Ratio 0.9 (1.1-1.8); Alkaline Phosphatase 87 U/L (38-126); Anion Gap 10.3 mEq/L (5-15); Aspartate Amino Transferase 45 U/L (17-59); Bilirubin,Total 1.1 mg/dl (0.2-1.3); Blood Urea Nitrogen 18 mg/dl (9-20); Calcium 8.6 mg/dl (8.4-10.2); Carbon Dioxide 32 mmol/L (22.0-30.0); Chloride 97 mmol/L (98-107); Creatinine Clearance Estimated 131 mL/min (50-200); Estimated Glomerular Filt Rate 114 ml/min (>60); GFR (African American) 138 ML/MIN (>60); Globulin 3.8 g/dL (1.3-3.2); Glucose 107 mg/dl (74-100); Potassium 3.3 mmoL/L (3.5-5.1); Sodium 136 mmol/L (136-145); Total Protein,Serum 7.4 g/dl (6.3-8.2)
[2020-03-13 16:28] LABS: Lactic Acid 2.5 mmol/L (0.7-2.1)
[2020-03-13 16:29] LABS: D-Dimer 5.38 ug/mL (0.0-0.5)
[2020-03-13 16:34] LABS: Basophils # 0.1 K/mm3 (0-0.2); Basophils % 0.6 % (0.1-2.0); Eosinophils # 0.2 K/mm3 (0.0-0.4); Eosinophils % 1.2 % (0.1-12.0); Hematocrit 50.6 % (42.0-52.0); Hemoglobin 16.8 g/dL (14.1-18.0); Lymphocytes # 0.8 K/mm3 (0.7-4.5); Lymphocytes % 4.6 % (10-50); Mean Corpuscular HGB Conc 33.2 g/dL (31.8-35.4); Mean Corpuscular Hemoglobin 30.3 pg (27.0-31.2); Mean Corpuscular Volume 91.2 fl (80-94); Mean Platelet Volume 8.6 fl (7.4-10.4); Monocytes # 0.8 K/mm3 (0.1-1.0); Monocytes % 4.4 % (1.7-9.3); Neutrophils # 16.2 K/mm3 (1.8-7.8); Neutrophils % 89.2 % (37.0-80.0); Platelet Count 316 K/mm3 (142-424); Red Blood Count 5.54 M/mm3 (4.60-6.20); Red Cell Distribution Width 14.1 % (11.5-17.5); White Blood Count 18.2 K/mm3 (4.8-10.8)
[2020-03-13 16:35] LABS: NT Pro Brain Natriuretic Pep. 289 pg/mL (0-125)
[2020-03-13 16:35] LABS: VBG Base Excess 1.5 mmol/L (-2.4-2.3); VBG HCO3 25.8 mmol/L (23-30); VBG Oxygen Saturation 71.5 % (50-70); VBG PCO2 39.9 mmol/L (35-51); VBG PH 7.43 mmol/L (7.31-7.41); VBG PO2 39.9 mmol/L (28-40); VBG Total CO2 27.1 mmol/L (23-27)
[2020-03-13 16:36] LABS: MANUAL DIFFERENTIAL MANUAL DIFFERENTIAL (MANUAL DIFF)
[2020-03-13 16:38] LABS: Troponin I < 0.01 ng/ml (0.00-0.034)
[2020-03-13 16:41] LABS: Procalcitonin 0.109 ng/mL (0.0-2.0)
[2020-03-13 16:45] LABS: Lymphocytes % 8 % (10-50); Monocytes % 7 % (2-9); Neutrophils % 85 % (42-76); Platelet Estimate Normal; RBC Morphology Normal; Total Cells Counted 100
--- NOTE | 2020-03-13 16:51 | CT_ITS ---
PROCEDURE: CT ANGIO CHEST CLINCIAL INDICATION: hypoxic RF; elevated d-dimer Covid19, shortness of air, hypoxia, elevated D-dimer COMPARISON: CT CT ANGIO CHEST from 03/08/2020 TECHNIQUE: IV Contrast: 70ML Isovue 370 Axial images obtained with sagittal and coronal reformats. All CT scans at the facility use one or more dose reduction, viz: automated exposure control, ma/kV adjustment per patient size (including targeted exams where dose is matched to indication, i.e. head), or iterative reconstruction technique. FINDINGS: HEART AND MEDIASTINAL STRUCTURES: Multiple small pulmonary emboli had developed in the right upper lobe, posterior segmental pulmonary artery branches of the right lower lobe and left lower lobe. No saddle embolus evident. No evidence of right heart strain. No mediastinal or hilar mass. LUNGS AND PLEURAL SPACES: Diffuse bilateral ground-glass infiltrates with septal thickening and some consolidation consistent with Covid19 pneumonia which has progressed compared to the previous exam. Involvement is greater in the upper lobes than the lower lobes. No effusions. No evidence of pneumothorax. BONY STRUCTURES: No acute bony abnormalities apparent. UPPER ABDOMEN: Unremarkable. ADDITIONAL FINDINGS: No other significant abnormalities. IMPRESSION: 1. Interval development of small bilateral pulmonary emboli. 2. Progression of bilateral Covid19 pneumonia Dictated by: Hiram Pruitt MD 03/14/2020 11:11 Hiram Pruitt MD in [facility] 03/14/2020 11:11
[2020-03-13 17:02] LABS: Erythrocyte Sedimentation Rate 6 mm/hr (0-20)
[2020-03-13 17:15] LABS: Microscopic, Urine URINE MICROSCOPIC (MICROSCOPIC)
[2020-03-13 17:19] LABS: Appearance,Urine CLEAR (Clear); Bilirubin,Urine Negative (Negative); Blood, Urine TRACE-L (Negative); Color,Urine YELLOW (Yellow); Glucose,Urine (UA) Negative (Negative); Ketones,Urine Negative (Negative); Leukocyte Esterase,Urine Negative (Negative); Nitrate,Urine Negative (Negative); Protein,Urine TRACE (Negative); Specific Gravity, Urine 1.025 (1.005-1.030)
[2020-03-13 17:30] LABS: Amorphous Sediment,Urine 1+ /lpf; Mucus,Urine 1+ /lpf; WBC,Urine Occasional #/hpf (0-3)
--- NOTE | 2020-03-13 17:37 | PC.NURSE ---
pt returning from rad
--- NOTE | 2020-03-13 18:16 | PC.NURSE ---
Gauri paged per MD request for admission.
--- NOTE | 2020-03-13 18:26 | PC.NURSE ---
RT at bedside placing pt on bipap
[2020-03-13 19:06] LABS: Reflex Lactic Add Lactic Reflex
[2020-03-13 19:36] LABS: Troponin I 0.02 ng/ml (0.00-0.034)
--- NOTE | 2020-03-13 23:14 | PC.NURSE ---
patient up to floor via wheelchair @ 20:21.
[2020-03-13 23:55] LABS: Troponin I 0.01 ng/ml (0.00-0.034)
[2020-03-14] VITALS (10 sets, daily range): BP systolic 125–163; BP diastolic 73–107; PULSE 66–100; RESP 20–29; TEMP 36.4–37.2; O2SAT 90–94; BMI 40.1
--- NOTE | 2020-03-14 05:37 | PC.NURSE ---
Pt is A&O x4. Scattered rhonchi and wheezing heard bilaterally t/o all lung root. pt continues to wear bipap and will desat occasionally to 83-86 when taking the mask off but will recover in approx 10 min. Pt has been turned and repositioned in bed per pt's request. No other acute changes or complaints at this time.
--- NOTE | 2020-03-14 07:43 | P.CONPHA_ITS ---
[facility] Pharmacy VTE Monitoring - Patient Demographics Admission date: 03/13/20 Report Date: 03/14/20 Time: 07:43 Allergies/Adverse Reactions: Patient Allergies No Known Allergies Allergy (Verified 01/08/20 14:34) Height: 1.73 m Weight: 119.975 kg Patient Problems: Current Active Problems Pulmonary emboli (Acute) Respiratory failure (Acute) - VTE Risk Labs: VTE Related Lab Results Hgb 16.8 g/dL (14.1-18.0) 03/13/20 16:22 Hct 50.6 % (42.0-52.0) 03/13/20 16:22 Plt Count 316 K/mm3 (142-424) 03/13/20 16:22 BUN 18 mg/dl (9-20) 03/13/20 15:53 Creatinine 0.70 mg/dl (0.66-1.25) 03/13/20 15:53 Estimated Creat Clear 131 mL/min (50-200) 03/13/20 15:53 Was VTE Risk Assessment Performed: Yes VTE Score: 4 VTE Risk Level: Low Risk Clinical Trial Participant: No - Prophylaxis VTE Prophylaxis Ordered?: Yes Types of VTE Prophylaxis: TEDS Knee High, Pharmacological Pharmacologic Type: Enoxaparin
--- NOTE | 2020-03-14 07:49 | HMH.PHAINT ---
CLARIFIED HOME MEDICATION LIST WITH DISCHARGE LIST FROM LAST ADMISSION (03/10/20) AND PT'S .
--- NOTE | 2020-03-14 08:15 | HMH.HP ---
*Admission Date: 03/13/20 *Chief complaint: Dyspnea *History of present illness: 64-year-old white male with multiple comorbidities including morbid obesity, major depression with bipolar features and parkinsonism who was discharged from the hospital after an overnight stay for Covid pneumonitis with home oxygen, after 1 day of fairly good performance at home he became increasingly dyspneic with O2 saturations into the 60s off oxygen and was brought back to the emergency department, work-up revealed bilateral subsegmental pulmonary emboli and bilateral pneumonitis with requirement for BiPAP support and he was admitted to hospital for treatment of the above and ongoing respiratory support. [facility] History I have reviewed the patient's past medical history: Yes Medical History: Reports:: Hyperlipidemia, Hypertension Denies:: Cancer, Diabetes Mellitus Type 1, Diabetes Mellitus Type 2, MRSA *Have you ever received a pneumonia vaccine?: No *Have you received a flu vaccine this season?: No Other Surgeries: Yes: No Previous Surgery Amputation: No - *Social History Last grade of school completed: Advanced degree Smoking Status: Never smoker Alcohol Intake: current Alcohol Intake Frequency:: holidays/special occasions only *Occupational Status:: retired Household Members: spouse, children *Travel in the last 8 weeks: None Family Hx:: Cancer, Coronary Artery Disease, Diabetes, Heart Attack, Hyperlipidemia, Hypertension, Stroke Review of Systems - Review of Systems Review of systems:: pertinent systems reviewed and negative unless documented below Patient on BiPAP, states he is more comfortable. Otherwise has no complaints except for a desire to get off BiPAP. Meds Home Medications Medication Instructions Recorded Confirmed Type Carbidopa/Levodopa 2 each PO TID 01/08/20 03/13/20 History [Carbidopa/Levodopa 25/100mg Tablet] Venlafaxine HCl [Effexor XR 75mg 225 mg PO DAILY 01/08/20 03/13/20 History capsule] Amoxicillin [Amoxicillin 875MG 875 mg PO Q12H 03/08/20 03/13/20 History Tab] Benzonatate [Benzonatate 200mg Cap] 225 mg PO TID PRN 03/08/20 03/13/20 History Ergocalciferol (Vitamin D2) 1,250 mcg PO DIRECTED 03/08/20 03/13/20 History [Vitamin D2] dexAMETHasone [Decadron 4mg tablet] 4 mg PO BID 03/08/20 03/13/20 History Allergies Allergy/AdvReac Type Severity Reaction Status Date / Time No Known Allergies Allergy Verified 01/08/20 14:34 Exam Vital signs and Labs for Last 24 Hours: Temp Pulse Resp BP Pulse Ox 98.0 F 66 27 H 163/107 H 91 L 03/14/20 04:00 03/14/20 04:00 03/14/20 04:00 03/14/20 04:00 03/14/20 04:00 Laboratory Results - last 24 hr 03/13/20 15:53: Sodium 136, Potassium 3.3 L, Chloride 97 L, Carbon Dioxide 32 H, Anion Gap 10.3, BUN 18, Creatinine 0.70, Estimated Creat Clear 131, Estimated GFR 114, Est GFR ( Amer) 138, Glucose 107 H, Calcium 8.6, Total Bilirubin 1.1, AST 45, ALT 12, Alkaline Phosphatase 87, Troponin I < 0.01, Total Protein 7.4, Albumin 3.6, Globulin 3.8 H, Albumin/Globulin Ratio 0.9 L 03/13/20 15:53: Lactate 2.5 H 03/13/20 15:53: NT-Pro-B Natriuret Pep 289 H 03/13/20 15:53: Procalcitonin 0.109 03/13/20 15:53: D-Dimer 5.38 H 03/13/20 16:22: WBC 18.2 H, RBC 5.54, Hgb 16.8, Hct 50.6, MCV 91.2, MCH 30.3, MCHC 33.2, RDW 14.1, Plt Count 316, MPV 8.6, Neut % (Auto) 89.2 H, Lymph % (Auto) 4.6 L, [place] % (Auto) 4.4, Eos % (Auto) 1.2, Baso % (Auto) 0.6, Neut # (Auto) 16.2 H, Lymph # (Auto) 0.8, [place] # (Auto) 0.8, Eos # (Auto) 0.2, Baso # (Auto) 0.1, Total Counted 100, Neutrophils % (Manual) 85 H, Lymphocytes % (Manual) 8 L, Monocytes % (Manual) 7, Platelet Estimate Normal, RBC Morphology Normal 03/13/20 16:22: ESR 6 03/13/20 16:28: VBG pH 7.43 H, VBG pCO2 39.9, VBG pO2 39.9, VBG HCO3 25.8, VBG Total CO2 27.1 H, VBG O2 Saturation 71.5 H, VBG Base Excess 1.5 03/13/20 17:11: Urine Color Yellow, Urine Appearance Clear, Urine pH 6.0, Ur Specific [place] 1.025, Urine Protei
[2020-03-14 09:18] LABS: Anion Gap 9.3 mEq/L (5-15); Blood Urea Nitrogen 17 mg/dl (9-20); Calcium 8.5 mg/dl (8.4-10.2); Carbon Dioxide 29 mmol/L (22.0-30.0); Chloride 100 mmol/L (98-107); Creatinine Clearance Estimated 128 mL/min (50-200); Estimated Glomerular Filt Rate 136 ml/min (>60); GFR (African American) 165 ML/MIN (>60); Glucose 118 mg/dl (74-100); Potassium 3.3 mmoL/L (3.5-5.1); Sodium 135 mmol/L (136-145)
[2020-03-14 09:25] LABS: Basophils % 0.1 % (0.1-2.0); Eosinophils # 0.1 K/mm3 (0.0-0.4); Eosinophils % 0.3 % (0.1-12.0); Hematocrit 46.4 % (42.0-52.0); Hemoglobin 15.5 g/dL (14.1-18.0); Lymphocytes # 0.6 K/mm3 (0.7-4.5); Lymphocytes % 2.9 % (10-50); Mean Corpuscular HGB Conc 33.4 g/dL (31.8-35.4); Mean Corpuscular Hemoglobin 30.6 pg (27.0-31.2); Mean Corpuscular Volume 91.6 fl (80-94); Mean Platelet Volume 8.8 fl (7.4-10.4); Monocytes # 0.7 K/mm3 (0.1-1.0); Monocytes % 3.2 % (1.7-9.3); Neutrophils # 19.6 K/mm3 (1.8-7.8); Neutrophils % 93.4 % (37.0-80.0); Platelet Count 303 K/mm3 (142-424); Red Blood Count 5.07 M/mm3 (4.60-6.20)
[2020-03-14 09:30] LABS: MANUAL DIFFERENTIAL MANUAL DIFFERENTIAL (MANUAL DIFF)
--- NOTE | 2020-03-14 10:06 | CA_ITS ---
APPROVED REPORT Bilateral Lower Extremity Venous Study for DVT. Meat Passer: Josefa Shaw RVT Indications Pulmonary Embolism ELEVATED D-DIMER,BILATERAL PE'S,COVID PNEUMONIA Risk Factors Immobility Obesity Vein Imaging CFV (R): compressive, spontaneous, phasic, augmentation FEM (R): compressive, spontaneous, phasic, augmentation POP (R): compressive, spontaneous, phasic, augmentation PTV (R): Compressible GSV (R): Compressible Peroneals (R):Compressible GAS (R): Compressible CFV (L): compressive, spontaneous, phasic, augmentation FEM (L): compressive, spontaneous, phasic, augmentation POP (L): compressive, spontaneous, phasic, augmentation PTV (L): Compressible GSV (L): Compressible Peroneals (L):Compressible GAS (L): Compressible Findings Study suggests no evidence of DVT of the bilateral lower extremites. Study suggests no evidence of SVT of the bilateral lower extremites. Conclusion Study suggests no evidence of DVT of the bilateral lower extremites. Study suggests no evidence of SVT of the bilateral lower extremites. Electronically signed by : Hiram Pruitt MD 03/14/2020 19:17:38
[2020-03-14 10:34] LABS: Lymphocytes % 19 % (10-50); Monocytes % 3 % (2-9); Neutrophils % 78 % (42-76); Platelet Estimate Normal; RBC Morphology Normal; Total Cells Counted 100
--- NOTE | 2020-03-14 11:49 | HMH.PTEV ---
Physical Therapy Evaluation Rehab PT IP Evaluation Start: 03/14/20 08:18 Freq: ONCE Status: Active Protocol: Document 03/14/20 11:00 DEIDRA (Rec: 03/14/20 11:49 DEIDRA [id number]) Subjective/History History History 64-year-old white male with multiple comorbidities including morbid obesity, major depression with bipolar features and parkinsonism who was discharged from the hospital after an overnight stay for Covid pneumonitis with home oxygen, after 1 day of fairly good performance at home he became increasingly dyspneic with O2 saturations into the 60s off oxygen and was brought back to the emergency department, work-up revealed bilateral subsegmental pulmonary emboli and bilateral pneumonitis with requirement for BiPAP support and he was admitted to hospital for treatment of the above and ongoing respiratory support. Subjective Subjective Pt reports no pain - after treatemnt pt wishes to know how he did Rehab PT IP Eval Objective Appearance Patient Behavior Appropriate,Cooperative Patient Orientation Person,Place,Time Difficulty following instructions none Speech Pattern Appropriate,Delayed,Soft- Spoken Ambulation Patient Able to Ambulate Yes Ambulation Observation IP General Gait Pattern Observation Shuffling Step Ambulation Distance (feet) 2 Ambulation Assistive Device None Ambulation Ability Contact Guard/Hand Hold Balance Ability to Arise Able, uses arms to help Sitting Balance Steady, safe Standing Balance Steady, wide stance Dynamic Sitting Balance Ability Fair Dynamic Standing Balance Ability Poor Transfers Bed Transfer Ability Contact Guard/Hand Hold Chair Transfer Ability Contact Guard/Hand Hold Sit to Stand Bed Transfer Ability Contact Guard/Hand Hold Rehab PT IP prob,goals,plan Problems Date of Evaluation: 03/14/20 PT IP Problems Bed Mobility,Transfers,Gait, Balance,Self care,Safety Rehab Potential Rehab Potential
--- NOTE | 2020-03-14 11:56 | HMH.OTEV ---
OT Inpatient Evaluation Rehab OT IP Evaluation Start: 03/14/20 08:18 Freq: ONCE Status: Complete Protocol: Document 03/14/20 11:10 DEDE (Rec: 03/14/20 11:19 DEDE [id number]) Rehab OT IP Assessment Subjective History 64-year-old white male with multiple comorbidities including morbid obesity, major depression with bipolar features and parkinsonism who was discharged from the hospital after an overnight stay for Covid pneumonitis with home oxygen, after 1 day of fairly good performance at home he became increasingly dyspneic with O2 saturations into the 60s off oxygen and was brought back to the emergency department, work-up revealed bilateral subsegmental pulmonary emboli and bilateral pneumonitis with requirement for BiPAP support and he was admitted to hospital for treatment of the above and ongoing respiratory support. PMH: HLD and HTN Subjective I want to get up. Patiet was currently on CPAP during evaluation with SPO2 92-97%. Co-treated with PT 2* patient' s lethargic and poor endurance at this time. Patient completed supine->sit @ EOB requiring Max A. Patient demonstrated Good dynamic sitting balance at EOB with no LOB noted. Instructed Patient on SPT from EOB->recliner requiring CGA x2. SPO2 remaining 92-97% throughout session. Left Patient sitting up in recliner with needs met at end of session. Objective Patient Orientation Person,Name,Year Upper Extremity Gross ROM WNL Bed Mobility bed mobility-scooting,bed mobility - supine/sit,bed mobility - rolling Assist Level Maximum x 1 (75% assist) Transfer
--- NOTE | 2020-03-14 12:21 | PC.WOUNDNOTE ---
Wound Location: penis - scabbed area Length:05cm Width:0.5cm Depth: Undermining Y/N: n Tunneling cm: Granulation %: Slough/necrotic tissue %: Inflammation/swelling Y/N:n Pain and/or tenderness Y/N:y Exudate: n/a Serosanguinous Sanguinous Serosanguinous Seropurulent Purulent Color:n/a Clear [place] Cloudy/milky [place] Red Green Yellow Brown [place] Blue Consistency:n/a Thick Thin Amount:n/a None Scant Small Moderate Large Odor Y/N:no
--- NOTE | 2020-03-14 19:49 | PC.NURSE ---
HE IS AOX4, ABLE TO MAKE NEEDS KNOWN TO STAFF, 1 ASSIST TO BSC TOLERATED WELL, WAS UP TO CHAIR FOR MOST OF SHIFT, VAPOTHERM AT 15L IN PLACE, VSS
[2020-03-15] VITALS (10 sets, daily range): BP systolic 122–141; BP diastolic 74–90; PULSE 70–91; RESP 18–22; TEMP 36.6–36.9; O2SAT 89–93; BMI 40.2
--- NOTE | 2020-03-15 02:35 | PC.NURSE ---
A&OX4. PT HAS TOLERATED VAPOTHERM WELL THROUGHOUT SHIFT. RESPIRATIONS REGULAR AND UNLABORED. LUNG SOUNDS DIMINISHED THROUGHOUT. NO COUGH NOTED. HAND SANITATION LEAD EQUAL. +2 PULSES NOTED THROUGHOUT. GENERALIZED EDEMA NOTED. ACTIVE BOWEL SOUNDS HEARD IN ALL 4 QUADRANTS. SOFT AND NONTENDER ABDOMEN. PT HAS HAD 1 MODERATE, SOFT BM THUS FAR. PT VOIDS PER URINAL AND BSC W 1 PERSON ASSIST. CLEAR YELLOW URINE NOTED. NO REPORTS OF PAIN, SOB, OR NAUSEA THUS FAR. PT HAS REMAINED IN CONTACT AND [employer] THROUGHOUT SHIFT. NS INFUSING AT 100ML/HR. BED IN LOWEST POSITION. CALL LIGHT WITHIN REACH. VSS. WILL CONTINUE TO MONITOR.
--- NOTE | 2020-03-15 03:04 | PC.NURSE ---
SERENA NOTIFIED THIS NURSE THAT WHILE IN PATIENT'S ROOM SHE NOTICED A BLOODY TISSUE AND THE PATIENT'S URINE IS BLOODY. WHEN THIS NURSE ASSISTED THE PT WITH THE RESTROOM EARLIER IN THE SHIFT, HIS URINE WAS YELLOW. PT DOES HAVE A SCAB NOTED FROM WHAT LOOKS LIKE A PAPER CUT ON THE TIP OF HIS PENIS. PICTURES ON THE CHART FROM A FEW DAYS AGO TAKEN BY ANOTHER NURSE. IT SEEMS LIKE PT MAY HAVE BEEN PICKING THE SCAB. HE REPORTS NO PAIN. WILL CONTINUE TO MONITOR.
[2020-03-15 06:04] LABS: Basophils % 0.1 % (0.1-2.0); Eosinophils % 0.1 % (0.1-12.0); Hematocrit 44.6 % (42.0-52.0); Hemoglobin 14.7 g/dL (14.1-18.0); Lymphocytes # 0.6 K/mm3 (0.7-4.5); Lymphocytes % 2.5 % (10-50); Mean Corpuscular HGB Conc 32.9 g/dL (31.8-35.4); Mean Corpuscular Hemoglobin 30.4 pg (27.0-31.2); Mean Corpuscular Volume 92.2 fl (80-94); Mean Platelet Volume 8.8 fl (7.4-10.4); Monocytes # 0.8 K/mm3 (0.1-1.0); Monocytes % 3.3 % (1.7-9.3); Neutrophils # 21.7 K/mm3 (1.8-7.8); Platelet Count 316 K/mm3 (142-424); Red Blood Count 4.84 M/mm3 (4.60-6.20); Red Cell Distribution Width 13.9 % (11.5-17.5); White Blood Count 23.1 K/mm3 (4.8-10.8)
[2020-03-15 06:05] LABS: MANUAL DIFFERENTIAL MANUAL DIFFERENTIAL (MANUAL DIFF)
[2020-03-15 06:23] LABS: Alanine Aminotransferase 14 U/L (12-78); Albumin Level 2.9 g/dl (3.5-5.0); Albumin/Globulin Ratio 0.8 (1.1-1.8); Alkaline Phosphatase 70 U/L (38-126); Anion Gap 7.9 mEq/L (5-15); Aspartate Amino Transferase 39 U/L (17-59); Bilirubin,Total 0.9 mg/dl (0.2-1.3); Blood Urea Nitrogen 19 mg/dl (9-20); Calcium 8.4 mg/dl (8.4-10.2); Carbon Dioxide 31 mmol/L (22.0-30.0); Chloride 99 mmol/L (98-107); Creatinine Clearance Estimated 129 mL/min (50-200); Estimated Glomerular Filt Rate 136 ml/min (>60); GFR (African American) 165 ML/MIN (>60); Globulin 3.5 g/dL (1.3-3.2); Glucose 124 mg/dl (74-100); Potassium 3.9 mmoL/L (3.5-5.1); Sodium 134 mmol/L (136-145); Total Protein,Serum 6.4 g/dl (6.3-8.2)
--- NOTE | 2020-03-15 06:49 | HMH.ACPN2 ---
Internal Medicine - PN: Subj *Date: 03/15/20 *Time: 14:21 Interval history: Patient still quite ill. Significant oxygen requirement, continues to necessitate Vapotherm at 40 L/min on 100% FiO2. Saturations in the high 80s to low 90s overnight. Blood pressure stable. Remains afebrile. Tolerating some p.o. intake. Denies nausea, vomiting. Weak and unable to get to bedside chair Exam Vital signs and Labs for Last 24 Hours: Temp Pulse Resp BP Pulse Ox 98.0 F 70 20 127/76 91 L 03/15/20 03:45 03/15/20 04:00 03/15/20 03:45 03/15/20 03:45 03/15/20 03:45 Laboratory Results - last 24 hr 03/14/20 08:55: WBC 21.0 H*, RBC 5.07, Hgb 15.5, Hct 46.4, MCV 91.6, MCH 30.6, MCHC 33.4, RDW 14.0, Plt Count 303, MPV 8.8, Neut % (Auto) 93.4 H, Lymph % (Auto) 2.9 L, Alfalfa % (Auto) 3.2, Eos % (Auto) 0.3, Baso % (Auto) 0.1, Neut # (Auto) 19.6 H, Lymph # (Auto) 0.6 L, Alfalfa # (Auto) 0.7, Eos # (Auto) 0.1, Baso # (Auto) 0.0, Total Counted 100, Neutrophils % (Manual) 78 H, Lymphocytes % (Manual) 19, Monocytes % (Manual) 3, Platelet Estimate Normal, RBC Morphology Normal 03/14/20 08:55: Sodium 135 L, Potassium 3.3 L, Chloride 100, Carbon Dioxide 29, Anion Gap 9.3, BUN 17, Creatinine 0.60 L, Estimated Creat Clear 128, Estimated GFR 136, Est GFR ( Amer) 165, Glucose 118 H, Calcium 8.5 03/15/20 05:40: WBC 23.1 H*, RBC 4.84, Hgb 14.7, Hct 44.6, MCV 92.2, MCH 30.4, MCHC 32.9, RDW 13.9, Plt Count 316, MPV 8.8, Neut % (Auto) 94.0 H, Lymph % (Auto) 2.5 L, Alfalfa % (Auto) 3.3, Eos % (Auto) 0.1, Baso % (Auto) 0.1, Neut # (Auto) 21.7 H, Lymph # (Auto) 0.6 L, Alfalfa # (Auto) 0.8, Eos # (Auto) 0.0, Baso # (Auto) 0.0 03/15/20 05:40: Sodium 134 L, Potassium 3.9, Chloride 99, Carbon Dioxide 31 H, Anion Gap 7.9, BUN 19, Creatinine 0.60 L, Estimated Creat Clear 129, Estimated GFR 136, Est GFR ( Amer) 165, Glucose 124 H, Calcium 8.4, Total Bilirubin 0.9, AST 39, ALT 14, Alkaline Phosphatase 70, Total Protein 6.4, Albumin 2.9 L, Globulin 3.5 H, Albumin/Globulin Ratio 0.8 L I & O for Last 24 hours: Intake & Output 03/12/20 03/13/20 03/14/20 03/15/20 23:59 23:59 23:59 23:59 Intake Total 50 / 50 1320 / 1320 538 / 538 Output Total 280 / 280 730 / 730 175 / 175 Balance -230 / -230 590 / 590 363 / 363 Weight 119.805 kg 120 kg 120.429 kg - Constitutional moderate distress, obese - *Routine HEENT Exam Head: Present: normocephalic Eye: Present: EOMI, PERRL ENT: Present: mucous membranes moist Comments: masked facies - *Routine Neck Exam Present: supple. Absent: lymphadenopathy - *Routine Respiratory Exam Present: accessory muscle use, crackles (in bases), diminished air movement. Absent: rhonchi, wheezes - *Routine Cardiovascular Exam Present: RRR - *Routine Abdominal Exam Present: soft, normoactive bowel sounds. Absent: tenderness - *Routine Extremities Exam Present: edema (1+). Absent: cyanosis, clubbing - *Routine Skin Exam Present: warm. Absent: rash - *Routine Neurological Exam Present: alert, oriented X3 findings consistent with his parkinsonism Assessment and Plan (1) Acute hypoxemic respiratory failure due to COVID-19 Status: Acute Category: Medical Code(s): U07.1 - COVID-19; J96.01 - Acute respiratory failure with hypoxia (2) Pneumonia due to COVID-19 virus Status: Acute Category: Medical Code(s): U07.1 - COVID-19; J12.82 - Pneumonia due to coronavirus disease 2019 (3) Pulmonary emboli Status: Acute Qualifiers: Pulmonary embolism type: multiple subsegmental (without acute cor pulmonale) Qualified Code(s): I26.94 - Multiple subsegmental pulmonary emboli without acute cor pulmonale Category: Medical Code(s): I26.99 - Other pulmonary embolism without acute cor pulmonale (4) Respiratory failure Status: Acute Qualifiers: Chronicity: acute Respiratory failure complication: hypoxia Qualified Code(s): J96.01 - Acute respiratory failure with hypoxia Category: Medical Co
[2020-03-15 08:57] LABS: Lymphocytes % 4 % (10-50); Monocytes % 1 % (2-9); Neutrophils % 87 % (42-76); Platelet Estimate Normal; RBC Morphology Normal; Total Cells Counted 100
--- NOTE | 2020-03-15 13:49 | PC.NURSE ---
Addendum entered by Ivania Cooper RN 03/15/20 14:18: Pt states once he was up to chair and has calmed down he is breathing much better and less SOA than when he is in bed. SPO2 currently 90%. Original Note: Pt up to chair w/ assistance of PT. Pt tolearted activity well. Sats did decreased to low 80's, pt did recover in about 10 minutes to low 90's. Pt remains on vapotherm 40L @ 100%.
--- NOTE | 2020-03-15 17:06 | PC.NURSE ---
Pt remains up to chair, tolerating well. Continues on vapotherm, unable to wean (40L/100%). Denies being SOA. Lungs diminished throughout. No cough noted, is aware that we need a sputum specimen. HR regular. Abdomen soft, large, round w/ active BS. Appetite fair. Voiding per urinal. Noted by PT this shift that there was blood in urine. No BM this shift. Pt was bathed, shaved and linens were changed. Pt has spoken w/ this shift. She was also updated on POC by this nurse. No complaints voiced. VSS.
[2020-03-16] VITALS (12 sets, daily range): BP systolic 104–156; BP diastolic 79–94; PULSE 70–100; RESP 18–30; TEMP 36.4–37; O2SAT 85–93; BMI 39.6
--- NOTE | 2020-03-16 04:07 | PC.NURSE ---
Pt is A&Ox4. Lung sounds CTA. Dry, nonproductive cough noted this shift. Pt continues to tolerate vapotherm at 40L & 100% FiO2. Generalized non-pitting edema noted t/o body. Pt has been a x1 assist this shift. Pt has urinated clear, dark yellow urine with some blood noted this shift. Pt has had x1 small, light brown, loose BM. Active bowel sounds in al 4 quads. No other complaints or acute changes this shift.
[2020-03-16 06:27] LABS: Basophils % 0.1 % (0.1-2.0); Eosinophils # 0.1 K/mm3 (0.0-0.4); Eosinophils % 0.6 % (0.1-12.0); Hematocrit 44.5 % (42.0-52.0); Hemoglobin 14.1 g/dL (14.1-18.0); Lymphocytes # 0.7 K/mm3 (0.7-4.5); Lymphocytes % 3.5 % (10-50); Mean Corpuscular HGB Conc 31.8 g/dL (31.8-35.4); Mean Corpuscular Hemoglobin 29.5 pg (27.0-31.2); Mean Corpuscular Volume 93.1 fl (80-94); Mean Platelet Volume 8.7 fl (7.4-10.4); Monocytes # 1.1 K/mm3 (0.1-1.0); Monocytes % 5.1 % (1.7-9.3); Neutrophils % 90.7 % (37.0-80.0); Platelet Count 318 K/mm3 (142-424); Red Blood Count 4.79 M/mm3 (4.60-6.20); Red Cell Distribution Width 13.6 % (11.5-17.5)
[2020-03-16 06:45] LABS: MANUAL DIFFERENTIAL MANUAL DIFFERENTIAL (MANUAL DIFF)
[2020-03-16 07:00] LABS: Magnesium 2.3 mg/dl (1.6-2.3)
[2020-03-16 07:01] LABS: Alanine Aminotransferase 13 U/L (12-78); Albumin Level 3.1 g/dl (3.5-5.0); Albumin/Globulin Ratio 0.8 (1.1-1.8); Alkaline Phosphatase 70 U/L (38-126); Anion Gap 8.9 mEq/L (5-15); Aspartate Amino Transferase 55 U/L (17-59); Bilirubin,Total 0.9 mg/dl (0.2-1.3); Blood Urea Nitrogen 22 mg/dl (9-20); Calcium 8.4 mg/dl (8.4-10.2); Carbon Dioxide 31 mmol/L (22.0-30.0); Chloride 99 mmol/L (98-107); Creatinine Clearance Estimated 129 mL/min (50-200); Estimated Glomerular Filt Rate 114 ml/min (>60); GFR (African American) 138 ML/MIN (>60); Globulin 3.9 g/dL (1.3-3.2); Glucose 94 mg/dl (74-100); Potassium 3.9 mmoL/L (3.5-5.1); Sodium 135 mmol/L (136-145)
--- NOTE | 2020-03-16 08:44 | HMH.ACPN2 ---
Internal Medicine - PN: Subj *Date: 03/16/20 *Time: 08:44 Interval history: Patient on Vapotherm overnight, nursing staff and patient report that he was more comfortable, O2 saturations maintained in the low 90% range. Patient states he does feel better this morning. Exam Vital signs and Labs for Last 24 Hours: Temp Pulse Resp BP Pulse Ox 98.6 F 77 29 H 123/82 85 L 03/16/20 07:49 03/16/20 07:49 03/16/20 07:49 03/16/20 07:49 03/16/20 07:49 Laboratory Results - last 24 hr 03/15/20 05:40: Total Counted 100, Neutrophils % (Manual) 87 H, Band Neutrophils % 8.0, Lymphocytes % (Manual) 4 L, Monocytes % (Manual) 1 L, Platelet Estimate Normal, RBC Morphology Normal 03/16/20 05:50: WBC 21.0 H*, RBC 4.79, Hgb 14.1, Hct 44.5, MCV 93.1, MCH 29.5, MCHC 31.8, RDW 13.6, Plt Count 318, MPV 8.7, Neut % (Auto) 90.7 H, Lymph % (Auto) 3.5 L, Mower % (Auto) 5.1, Eos % (Auto) 0.6, Baso % (Auto) 0.1, Neut # (Auto) 19.0 H, Lymph # (Auto) 0.7, Mower # (Auto) 1.1 H, Eos # (Auto) 0.1, Baso # (Auto) 0.0 03/16/20 05:50: Magnesium 2.3 03/16/20 05:50: Sodium 135 L, Potassium 3.9, Chloride 99, Carbon Dioxide 31 H, Anion Gap 8.9, BUN 22 H, Creatinine 0.70, Estimated Creat Clear 129, Estimated GFR 114, Est GFR ( Amer) 138, Glucose 94, Calcium 8.4, Total Bilirubin 0.9, AST 55 D, ALT 13, Alkaline Phosphatase 70, Total Protein 7.0, Albumin 3.1 L, Globulin 3.9 H, Albumin/Globulin Ratio 0.8 L I & O for Last 24 hours: Intake & Output 01/24/21 01/25/21 01/26/21 01/27/21 11:59 11:59 11:59 11:59 Intake Total 530 / 530 1858 / 1858 840 / 840 Output Total 560 / 560 1025 / 1025 900 / 900 Balance -30 / -30 833 / 833 -60 / -60 Weight 264 lb 8.875 oz 265 lb 8 oz 261 lb 3 oz Microbiology Reports for the Last 24 Hours: Microbiology 03/13/20 15:53 Blood Blood Culture - Preliminary NO GROWTH AFTER 48 HOURS 03/13/20 15:53 Blood Blood Culture - Preliminary NO GROWTH AFTER 48 HOURS Narrative: Patient is alert, pleasant. Has rhonchi bilaterally, but fairly symmetric air entry. Abdomen soft, heart rate regular. No extremity edema of note. Assessment and Plan (1) Acute hypoxemic respiratory failure due to COVID-19 Status: Acute Category: Medical Code(s): U07.1 - COVID-19; J96.01 - Acute respiratory failure with hypoxia (2) Pneumonia due to COVID-19 virus Status: Acute Category: Medical Code(s): U07.1 - COVID-19; J12.82 - Pneumonia due to coronavirus disease 2019 (3) Pulmonary emboli Status: Acute Qualifiers: Pulmonary embolism type: multiple subsegmental (without acute cor pulmonale) Qualified Code(s): I26.94 - Multiple subsegmental pulmonary emboli without acute cor pulmonale Category: Medical Code(s): I26.99 - Other pulmonary embolism without acute cor pulmonale (4) Respiratory failure Status: Acute Qualifiers: Chronicity: acute Respiratory failure complication: hypoxia Qualified Code(s): J96.01 - Acute respiratory failure with hypoxia Category: Medical Code(s): J96.90 - Respiratory failure, unspecified, unspecified whether with hypoxia or hypercapnia (5) Obesity Status: Chronic Category: Medical Code(s): E66.9 - Obesity, unspecified (6) Parkinson disease Status: Chronic Category: Medical Code(s): G20 - Parkinson's disease - Assessment and plan all Dx Assessment and Plan for all problems:: Overall patient has stabilized. Continue Vapotherm support, wean as tolerated. Continue current COVID-19 therapies and IV antibiotics.
--- NOTE | 2020-03-16 09:22 | DIET.NUTRFU ---
Addendum entered by Johanna King 03/18/20 16:35: Pt with improvement PO intakes- 75-100%, weight stable. Has not had a BM since 03/14. Hyponatremia normalized. 2+ edema. No change to diet at this time. Tremors noted, weighted utensils and soup in cups added to diet order. Original Note: PO intakes 50% with fair toleration. Weight down 4# past 24h. Bowel function normal. Improvement electrolytes. Generalized edema. Diet liberalized from no added salt to regular with daily protein shake, continuing to monitor and alter as indicated.
[2020-03-16 09:29] LABS: Lymphocytes % 15 % (10-50); Monocytes % 5 % (2-9); Neutrophils % 78 % (42-76); Platelet Estimate Normal; RBC Morphology Normal; Total Cells Counted 100
--- NOTE | 2020-03-16 10:11 | PC.NURSE ---
Spoke w/ pt's @ this time, updated on pt's POC @ this time
--- NOTE | 2020-03-16 16:35 | PC.NURSE ---
Has been up to chair majority of shift. Remains on vapotherm 40L/100%, sats high 80's. Pt does desat to low to mid 80's w/ activity. Reports being SOA at times but notes that he feels like he is breathing better . Pt does have a wet cough, sputum cup @ bedside but unable to produce sputum enough for culture thus far. HR regular. Abdomen soft, large, non-tender w/ active BS. No BM this shift. Voiding per urinal w/ assistance w/o difficulty. No c/o voiced. Pt does appear anxious @ times, he will obsess over seeing is SPO2 on bedside monitor. Assured pt that staff are monitoring him outside the room and can see it as well. No further needs voiced Call michele w/in reach.
[2020-03-17] VITALS (11 sets, daily range): BP systolic 121–164; BP diastolic 68–93; PULSE 70–103; RESP 18–23; TEMP 36.3–37.1; O2SAT 87–96; BMI 40.6
--- NOTE | 2020-03-17 04:03 | PC.NURSE ---
Pt is A&Ox4. Lung sounds diminished t/o. Dry, nonproductive cough noted. Pt continues 4L and 100% Fio2 of vapotherm w/ o2 sats between 87-91%. Generalized non-pitting edema t/o. Active bowel sounds in all 4 quads, no BM reported this shift. no other acute change or complaints at this time.
[2020-03-17 05:23] LABS: Chloride 102 mmol/L (98-107); Potassium 3.6 mmoL/L (3.5-5.1); Sodium 135 mmol/L (136-145)
[2020-03-17 05:25] LABS: Blood Urea Nitrogen 19 mg/dl (9-20); Creatinine Clearance Estimated 127 mL/min (50-200); Estimated Glomerular Filt Rate 114 ml/min (>60); GFR (African American) 138 ML/MIN (>60)
[2020-03-17 05:26] LABS: Alanine Aminotransferase 10 U/L (12-78); Albumin/Globulin Ratio 0.8 (1.1-1.8); Alkaline Phosphatase 84 U/L (38-126); Anion Gap 6.6 mEq/L (5-15); Aspartate Amino Transferase 45 U/L (17-59); Bilirubin,Total 0.9 mg/dl (0.2-1.3); Calcium 8.3 mg/dl (8.4-10.2); Carbon Dioxide 30 mmol/L (22.0-30.0); Globulin 3.7 g/dL (1.3-3.2); Glucose 90 mg/dl (74-100); Total Protein,Serum 6.7 g/dl (6.3-8.2)
--- NOTE | 2020-03-17 08:49 | HMH.ACPN2 ---
Internal Medicine - PN: Subj *Date: 03/17/20 *Time: 08:49 Interval history: Patient remains alert, oriented x3. On Vapotherm at 100% FiO2 but is comfortable with sats above 88%. Nurses have noted some edema overnight. Exam Vital signs and Labs for Last 24 Hours: Temp Pulse Resp BP Pulse Ox 97.4 F L 103 H 19 164/73 H 96 03/17/20 08:00 03/17/20 08:00 03/17/20 08:00 03/17/20 08:00 03/17/20 08:00 Laboratory Results - last 24 hr 03/16/20 05:50: Total Counted 100, Neutrophils % (Manual) 78 H, Band Neutrophils % 2.0, Lymphocytes % (Manual) 15, Monocytes % (Manual) 5, Platelet Estimate Normal, RBC Morphology Normal 03/17/20 04:20: Sodium 135 L, Potassium 3.6, Chloride 102, Carbon Dioxide 30, Anion Gap 6.6, BUN 19, Creatinine 0.70, Estimated Creat Clear 127, Estimated GFR 114, Est GFR ( Amer) 138, Glucose 90, Calcium 8.3 L, Total Bilirubin 0.9, AST 45, ALT 10 L, Alkaline Phosphatase 84, Total Protein 6.7, Albumin 3.0 L, Globulin 3.7 H, Albumin/Globulin Ratio 0.8 L I & O for Last 24 hours: Intake & Output 03/14/20 03/15/20 03/16/20 03/17/20 11:59 11:59 11:59 11:59 Intake Total 530 / 530 1858 / 1858 1320 / 1320 1180 / 1180 Output Total 560 / 560 1025 / 1025 900 / 900 1275 / 1275 Balance -30 / -30 833 / 833 420 / 420 -95 / -95 Weight 264 lb 8.875 oz 265 lb 8 oz 261 lb 3 oz 268 lb 1.992 oz Narrative: Pleasant, talkative, lungs have good air excursion, rhonchi and crackles in both lower root. Heart rate regular but his morbid obesity limits a adequate exam. Abdomen doughy but soft. Extremity edema noted in the hands and below his knees. Good distal perfusion otherwise. No focal neurologic deficits. ENT exam clear. Assessment and Plan (1) Acute hypoxemic respiratory failure due to COVID-19 Status: Acute Category: Medical Code(s): U07.1 - COVID-19; J96.01 - Acute respiratory failure with hypoxia (2) Pneumonia due to COVID-19 virus Status: Acute Category: Medical Code(s): U07.1 - COVID-19; J12.82 - Pneumonia due to coronavirus disease 2019 (3) Pulmonary emboli Status: Acute Qualifiers: Pulmonary embolism type: multiple subsegmental (without acute cor pulmonale) Qualified Code(s): I26.94 - Multiple subsegmental pulmonary emboli without acute cor pulmonale Category: Medical Code(s): I26.99 - Other pulmonary embolism without acute cor pulmonale (4) Respiratory failure Status: Acute Qualifiers: Chronicity: acute Respiratory failure complication: hypoxia Qualified Code(s): J96.01 - Acute respiratory failure with hypoxia Category: Medical Code(s): J96.90 - Respiratory failure, unspecified, unspecified whether with hypoxia or hypercapnia (5) Obesity Status: Chronic Category: Medical Code(s): E66.9 - Obesity, unspecified (6) Parkinson disease Status: Chronic Category: Medical Code(s): G20 - Parkinson's disease - Assessment and plan all Dx Assessment and Plan for all problems:: Patient is improving, continue current Vapotherm support. Acceptable oxygen saturations. Lasix today given his edema and continue observation. has requested evaluation for skilled care for rehabilitation. I think this is reasonable. Care management is aware. Labs tomorrow to monitor response to Lasix.
--- NOTE | 2020-03-17 11:04 | SW/DCPLANNER ---
Addendum entered by Joanne Lewis 03/18/20 10:15: PATIENT WAS MOVED TO THE ICU COVID UNIT R/T NEEDING THE BED ON THE FLOOR...DR PRETTY HAD A CONVERSATION WITH HIS THIS MORNING REGARDING HIS CONDITION BEING GUARDED.. [facility] STATED SHE UNDERSTOOD HIS CONDITION AND WANTS HIM TO GET WELL ENOUGH TO GO FOR REHAB IF POSSIBLE..WILL FOLLOW UP WITH [facility] REGARDING THEIR BED STATUS AND KEEP THEM POSTED ON PATIENTS CONDITION.. Addendum entered by Joanne Lewis 03/17/20 14:55: RECEIVED A CALL FROM NKIOLE AT [facility] AND SHE SAID SHE COULD ACCEPT PATIENT WHEN READY AND WOULD HAVE 30 DAYS PER CALENDAR YEAR OF SKILLED CARE R/T HIS [employer]M COMMERCIAL BENEFIT... HE HAS SOME OUT OF POCKET BUT SHOULD BE PAID FROM HIS HOSPITAL STAY.. I SPOKE WITH [facility]IS, AND SHE IS IN AGREEMENT IF THEY WILL TAKE HIM.. AT THIS TIME HE IS NOT MEDICALLY READY TO MAKE A MOVE TO A DETENTION FACILITY... WILL KEEP [facility] UPDATED... Original Note: SENT REFERRAL TO [facility] TO SEE IF THIS PATIENT HAS A BENEFIT FOR SKILLED CARE WITH HIS ANTHEM AND IF NOT WHAT PRIVATE PAY RATE WOULD BE...
--- NOTE | 2020-03-17 16:04 | PC.NURSE ---
HE IS AOX4, ABLE TO MAKE NEEDS KNOWN TO STAFF, O2 SATS HAVE BEEN IN 85%-88%, MD BURR IS AWARE OF PT STATUS, AT THIS TIME VAPOTHERM IS IN PLACE WITH NON-REBREATHER IN PLACE ALSO, HE STATES THAT HE FEELS BETTER BUT O2 SATS REMINA IN 80'S WITH AWARE. 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 NO NEEDS VOICED AT THIS TIME, WILL CONTINUE TO MONITOR.
[2020-03-18] VITALS (12 sets, daily range): BP systolic 121–126; BP diastolic 69–88; PULSE 84–91; RESP 20–34; TEMP 36.7–37.6; O2SAT 89–93; BMI 40.1
--- NOTE | 2020-03-18 07:29 | HMH.ACPN2 ---
Internal Medicine - PN: Subj *Date: 03/18/20 *Time: 08:30 Interval history: Patient no acute events overnight. Did transition from Vapotherm to BiPAP however continued to be stable on 100% FiO2. Seems to be tolerating the BiPAP well this morning. Remains afebrile, hemodynamically stable. Tolerating oral medications at this time. Tolerating some oral intake. Discussed case with patient's this morning in consultation room. She understands the severity of his illness and stable but tenuous condition with which she has maintained over the past 4 days. Again reevaluated goals of care. Patient does want ACLS if his heart were to stop and aortic code. Does not however want intubation. She reiterated that today that they want maximal noninvasive support, but no invasive/intubation respiratory support. Updated her on his plan as well. Exam Vital signs and Labs for Last 24 Hours: Temp Pulse Resp BP Pulse Ox 98.1 F 90 20 121/77 90 L 03/18/20 03:21 03/18/20 04:20 03/17/20 23:59 03/18/20 03:21 03/18/20 03:21 I & O for Last 24 hours: Intake & Output 03/15/20 03/16/20 03/17/20 03/18/20 23:59 23:59 23:59 23:59 Intake Total 1618 / 1738 1780 / 1780 1130 / 1130 10 10 Output Total 975 / 975 1225 / 1225 2300 / 2300 550 / 550 Balance 643 / 763 555 / 555 -1170 / -1170 -540 / -540 Weight 120.429 kg 118.473 kg 121.619 kg 120.338 kg - Constitutional moderate distress, obese - *Routine HEENT Exam Head: Present: normocephalic Eye: Present: EOMI, PERRL ENT: Present: mucous membranes moist - *Routine Neck Exam Present: supple. Absent: lymphadenopathy - *Routine Respiratory Exam Present: accessory muscle use, crackles, diminished air movement - *Routine Cardiovascular Exam Present: RRR - *Routine Abdominal Exam Present: soft, normoactive bowel sounds. Absent: tenderness - *Routine Extremities Exam Present: edema (2+). Absent: cyanosis, clubbing - *Routine Skin Exam Present: warm. Absent: rash - *Routine Neurological Exam Present: alert, oriented X3 - Routine Psychiatric Exam Present: anxious Assessment and Plan (1) Acute hypoxemic respiratory failure due to COVID-19 Status: Acute Category: Medical Code(s): U07.1 - COVID-19; J96.01 - Acute respiratory failure with hypoxia (2) Pneumonia due to COVID-19 virus Status: Acute Category: Medical Code(s): U07.1 - COVID-19; J12.82 - Pneumonia due to coronavirus disease 2019 (3) Pulmonary emboli Status: Acute Qualifiers: Pulmonary embolism type: multiple subsegmental (without acute cor pulmonale) Qualified Code(s): I26.94 - Multiple subsegmental pulmonary emboli without acute cor pulmonale Category: Medical Code(s): I26.99 - Other pulmonary embolism without acute cor pulmonale (4) Respiratory failure Status: Acute Qualifiers: Chronicity: acute Respiratory failure complication: hypoxia Qualified Code(s): J96.01 - Acute respiratory failure with hypoxia Category: Medical Code(s): J96.90 - Respiratory failure, unspecified, unspecified whether with hypoxia or hypercapnia (5) Obesity Status: Chronic Category: Medical Code(s): E66.9 - Obesity, unspecified (6) Parkinson disease Status: Chronic Category: Medical Code(s): G20 - Parkinson's disease - Assessment and plan all Dx Assessment and Plan for all problems:: 64-year-old male with COVID-19 pneumonia, bilateral subsegmental PEs, baseline Parkinson's disease. Continues to be on maximal noninvasive respiratory support. Transition to ICU overnight for improved cohorting. COVID-19 pneumonia Acute hypoxemic respiratory failure Bilateral subsegmental PEs -Continue Covid protocol with remdesivir, dexamethasone, vitamin supplementation. -Continue therapeutic Lovenox -Patient continues to have significant oxygen requirement. Will diurese again today to assess for improvement in breathing. Goal -1 L today Nutrition as tolerated Slidi
[2020-03-18 10:57] LABS: Alanine Aminotransferase 28 U/L (12-78); Albumin Level 2.7 g/dl (3.5-5.0); Albumin/Globulin Ratio 0.8 (1.1-1.8); Alkaline Phosphatase 89 U/L (38-126); Anion Gap 9.5 mEq/L (5-15); Aspartate Amino Transferase 44 U/L (17-59); Bilirubin,Total 0.9 mg/dl (0.2-1.3); Blood Urea Nitrogen 18 mg/dl (9-20); Calcium 8.1 mg/dl (8.4-10.2); Carbon Dioxide 29 mmol/L (22.0-30.0); Chloride 103 mmol/L (98-107); Creatinine Clearance Estimated 129 mL/min (50-200); Estimated Glomerular Filt Rate 114 ml/min (>60); GFR (African American) 138 ML/MIN (>60); Globulin 3.6 g/dL (1.3-3.2); Glucose 99 mg/dl (74-100); Potassium 3.5 mmoL/L (3.5-5.1); Sodium 138 mmol/L (136-145); Total Protein,Serum 6.3 g/dl (6.3-8.2)
[2020-03-18 10:59] LABS: Basophils % 0.1 % (0.1-2.0); Eosinophils # 0.2 K/mm3 (0.0-0.4); Eosinophils % 0.8 % (0.1-12.0); Hematocrit 42.1 % (42.0-52.0); Hemoglobin 13.9 g/dL (14.1-18.0); Lymphocytes # 0.4 K/mm3 (0.7-4.5); Mean Corpuscular Hemoglobin 30.2 pg (27.0-31.2); Mean Corpuscular Volume 91.4 fl (80-94); Mean Platelet Volume 9.1 fl (7.4-10.4); Monocytes # 0.8 K/mm3 (0.1-1.0); Monocytes % 3.8 % (1.7-9.3); Neutrophils # 19.3 K/mm3 (1.8-7.8); Neutrophils % 93.3 % (37.0-80.0); Platelet Count 353 K/mm3 (142-424); Red Blood Count 4.61 M/mm3 (4.60-6.20); Red Cell Distribution Width 13.8 % (11.5-17.5); White Blood Count 20.7 K/mm3 (4.8-10.8)
[2020-03-18 11:00] LABS: MANUAL DIFFERENTIAL MANUAL DIFFERENTIAL (MANUAL DIFF)
[2020-03-18 13:31] LABS: Lymphocytes % 5 % (10-50); Monocytes % 5 % (2-9); Neutrophils % 90 % (42-76); Platelet Estimate Normal; RBC Morphology Normal; Total Cells Counted 100
--- NOTE | 2020-03-18 23:08 | PC.NURSE ---
Patient lying in bed denies any pain. Received in report not eating meals r/t unable to tolerate taking off Bipap without O2 sats dropping quickly. Call light within reach, bed at lowest level for safety.
[2020-03-19] VITALS (9 sets, daily range): BP systolic 78–166; BP diastolic 42–98; PULSE 86–143; RESP 28–40; TEMP 35.8–37.1; O2SAT 76–91; BMI 40.0
--- NOTE | 2020-03-19 03:40 | XR_ITS ---
PROCEDURE: XR CHEST PORTABLE Referring Doctor: Washington Marquez Patient Age:64Y CLINICAL HISTORY: shortness of air Respiratory distress COMPARISON: CR XR CHEST PORTABLE from 03/08/[address] ANGIO CHEST from 03/13/2020 CR XR CHEST PORTABLE from 03/13/2020 CR XR CHEST PORTABLE from 03/19/2020 FINDINGS: AP portable upright chest performed and compared to multiple previous studies . Less optimal inspiration today. Progression of the bilateral pneumonia since 03/13/2020. Infiltrates have become denser and more confluent, less patchy. Bilateral infiltrate mainly involves the central lung root extending into the upper lobes. However the denser more pronounced infiltrate in left extends to the left lung base obscuring the left left heart border . Air bronchograms are now evident centrally but most likely this reflects pneumonia but you may want a it check BNP to exclude element of CHF given the central rather than peripheral distribution of infiltrate.. Of but prior CT from March 13 of supports pneumonia . No pneumothorax. No pneumomediastinum no pleural effusion clinical research monitor leads are in place. New no definite pleural effusion. Chest wall unremarkable IMPRESSION: . Progression of the diffuse bilateral pneumonic infiltrates. Infiltrate has become denser more extensive, denser and more confluent bilaterally--particularly here at the left lung. Air bronchograms have become more evident centrally. Low lung volumes may additionally accentuate above appearance Borderline cardiomegaly Although favor progressive pneumonia given the more central rather than peripheral distribution of infiltrate, you may want to check BNP Dictated by: Hector Diana MD 03/19/2020 08:46 Hector Diana MD in [facility] 03/19/2020 08:46
[2020-03-19 03:41] LABS: ABG Base Excess 0.9 mmol/L (-2.4-2.3); ABG HCO3 25.1 mmhg (22.0-26.0); ABG Oxygen Saturation 82 % (90-100); ABG PCO2 38.2 mmhg (35.0-45.0); ABG PH 7.44 mmol/L (7.35-7.45); ABG TCO2 26.3 mmhg (23-27)
[2020-03-19 04:00] LABS: Allen's Test Patient Unable; Oxygen 100 %; Source Right Radial
[2020-03-19 04:01] LABS: ABG PO2 44.2 mmhg (80-100)
--- NOTE | 2020-03-19 04:15 | PC.NURSE ---
Late entry: At 0400 he changed his code status to a full code. It was witnessed by the global technical writer and Patria Miller RN. His and daughter were at the bedside. He was alert and sitting up talking. Sinus tach between 120s-130s. O2 @ 77% and on bipap aty 100%.
--- NOTE | 2020-03-19 05:40 | PC.NURSE ---
0520 Family stated that he wants to be intubated and they have all talked and would like the doctor notified at this time. Tray in ER notified to inform Dr. Marquez that pt wants to be intubated, family wants intubation, and Dr. Astorga states ER MD may intubate.
[2020-03-19 06:01] LABS: POC Glucose,Bedside 107 (70-110)
--- NOTE | 2020-03-19 06:26 | PC.NURSE ---
Lab is going to try and come up to draw labs.
--- NOTE | 2020-03-19 06:46 | XR_ITS ---
PROCEDURE: XR CHEST PORTABLE#2 post intubation Referring Doctor: Gauri Aden Patient Age:64Y CLINICAL HISTORY: intubate pt pneumonia. Respiratory distress COMPARISON: No exams were available for comparison FINDINGS: ET tube now in place, satisfactory position. ET tube tip level tip 5.5 cm above maricel; with tip just below level of head of the clavicles. There is better expansion than on the previous 3:40 a.m. CXR. With that we see better aerated right lung base and medial left lung But also would note pneumomediastinum Vague streaky air within the neck bilaterally refer as well as at the mediastinum more to the right reflecting pneumomediastinum which has extended into the neck. But this will warrant close follow-up. The heart margin is better defined but I suspect this may be due to air about cardiac apex as reflecting extension of pneumomediastinum to this level as well. The arrowheads on neck and chest are placed to reflect the suspect areas of pneumomediastinum. Follow-up CXR will be important later today but you may want with higher contrast technique; or possibly 1 CXR image with high and and another with low kv technique to see if 1 of these better demonstrates the air within mediastinum and neck No there is no pneumothorax evident or associated The extensive bilateral pulmonary infiltrates are again seen similar to chest film from earlier in the day Left lung-diffuse rather confluent infiltrate seen throughout the left lung most evident left midlung but extending to the upper lung field and bases. Right lung.-Diffuse slight patchy infiltrate most evident at the central lung extending to to the right upper lung field with sparing and only minimal infiltrate right lung base Monitor leads in place. Likely a ED pad projected over left lung base IMPRESSION: ..ET tube satisfactory position 5.5 cm above maricel . Extensive bilateral pneumonia which has progressed since March 13 and March 08 .*. Pneumomediastinum now evident. (This was not noted on [facility] report) Streaky air seen throughout the mediastinum & outlining cardiac apex. With associated air extending upward through the neck bilaterally-Most evident on right. No there is no pneumothorax evident or associated Dictated by: Hector Diana MD 03/19/2020 08:28 Hector Diana MD in [place] 03/19/2020 08:28
--- NOTE | 2020-03-19 06:52 | PC.NURSE ---
Pt intubated via Dr. Schrader at 0645 with a 8.0 ETT. It is a 22cm at the lip. Pt received Succ 10mL at 0641 Pt received Etomidate 5mL. Respiratory bagging at 0643 BP 169/103, 141, 75% BP 145/76, HR 127, 86% Propofol started per Dr. Marquez at 0648 at 20mEq. BP 145/76, HR 120, 87%.
--- NOTE | 2020-03-19 06:57 | P.PCN_ITS ---
[facility] Procedure Note Procedure Note:: Called to ICU at 625 for intubation of Mr Lora d/t respiratory failure. O2 sat 70's on 100% bipap. Pt preo2 with ambu amidate 10mg followed by 200 anectine #4 mac and 8.0 ett at 22 cm placed +CO2 per indicator CXR ordered. O2 sats in the 80's post intubation.
--- NOTE | 2020-03-19 07:18 | PC.NURSE ---
Late entry: Rapid red called at [address] Marquez ordered chest x-ray 0045 Chest Xray obtained 0450 Glucose 107.
[2020-03-19 07:47] LABS: Alanine Aminotransferase 24 U/L (12-78); Albumin Level 3.3 g/dl (3.5-5.0); Albumin/Globulin Ratio 0.8 (1.1-1.8); Alkaline Phosphatase 107 U/L (38-126); Aspartate Amino Transferase 68 U/L (17-59); Bilirubin,Total 1.1 mg/dl (0.2-1.3); Blood Urea Nitrogen 22 mg/dl (9-20); Calcium 8.3 mg/dl (8.4-10.2); Carbon Dioxide 27 mmol/L (22.0-30.0); Chloride 99 mmol/L (98-107); Creatinine Clearance Estimated 128 mL/min (50-200); Estimated Glomerular Filt Rate 98 ml/min (>60); GFR (African American) 118 ML/MIN (>60); Globulin 4.4 g/dL (1.3-3.2); Glucose 109 mg/dl (74-100); Magnesium 2.1 mg/dl (1.6-2.3); Sodium 139 mmol/L (136-145); Total Protein,Serum 7.7 g/dl (6.3-8.2)
[2020-03-19 08:06] LABS: Basophils % 0.1 % (0.1-2.0); Eosinophils % 0.1 % (0.1-12.0); Hematocrit 49.6 % (42.0-52.0); Lymphocytes # 0.4 K/mm3 (0.7-4.5); Lymphocytes % 1.2 % (10-50); Mean Corpuscular HGB Conc 32.3 g/dL (31.8-35.4); Mean Corpuscular Hemoglobin 30.6 pg (27.0-31.2); Mean Corpuscular Volume 94.5 fl (80-94); Mean Platelet Volume 9.1 fl (7.4-10.4); Monocytes # 1.1 K/mm3 (0.1-1.0); Monocytes % 3.8 % (1.7-9.3); Neutrophils # 27.3 K/mm3 (1.8-7.8); Neutrophils % 94.7 % (37.0-80.0); Platelet Count 360 K/mm3 (142-424); Red Blood Count 5.25 M/mm3 (4.60-6.20); Red Cell Distribution Width 13.8 % (11.5-17.5); White Blood Count 28.8 K/mm3 (4.8-10.8)
--- NOTE | 2020-03-19 08:10 | PC.NURSE ---
Fentanyl gtt started @ 75mcg/hr.
--- NOTE | 2020-03-19 08:10 | HMH.ACPN2 ---
Internal Medicine - PN: Subj *Date: 03/19/20 *Time: 08:10 Interval history: Overnight patient was intubated after he and his family changed his CODE STATUS to full code. Intubation note reviewed. Unfortunately difficult time bagging the patient to achieve good saturations, currently patient is on FiO2 100% with acceptable peak inspiratory pressures and PEEP of 12 with O2 saturations in the 80s. He is sedated on the ventilator and appears comfortable. Blood pressures have been unremarkable. Exam Vital signs and Labs for Last 24 Hours: Temp Pulse Resp BP Pulse Ox 97.7 F 137 H 38 H 132/74 76 L 03/19/20 06:00 03/19/20 06:00 03/19/20 06:00 03/19/20 07:15 03/19/20 06:00 Laboratory Results - last 24 hr 03/18/20 10:30: WBC 20.7 H*, RBC 4.61, Hgb 13.9 L, Hct 42.1, MCV 91.4, MCH 30.2, MCHC 33.0, RDW 13.8, Plt Count 353, MPV 9.1, Neut % (Auto) 93.3 H, Lymph % (Auto) 2.0 L, Rooks % (Auto) 3.8, Eos % (Auto) 0.8, Baso % (Auto) 0.1, Neut # (Auto) 19.3 H, Lymph # (Auto) 0.4 L, Rooks # (Auto) 0.8, Eos # (Auto) 0.2, Baso # (Auto) 0.0, Total Counted 100, Neutrophils % (Manual) 90 H, Lymphocytes % (Manual) 5 L, Monocytes % (Manual) 5, Platelet Estimate Normal, RBC Morphology Normal 03/18/20 10:30: Sodium 138, Potassium 3.5, Chloride 103, Carbon Dioxide 29, Anion Gap 9.5, BUN 18, Creatinine 0.70, Estimated Creat Clear 129, Estimated GFR 114, Est GFR ( Amer) 138, Glucose 99, Calcium 8.1 L, Total Bilirubin 0.9, AST 44, ALT 28 D, Alkaline Phosphatase 89, Total Protein 6.3, Albumin 2.7 L, Globulin 3.6 H, Albumin/Globulin Ratio 0.8 L 03/19/20 03:39: Specimen Source Right radial, O2 % 100, ABG pH 7.44, ABG pCO2 38.2, ABG pO2 44.2 L, ABG HCO3 25.1, ABG Total CO2 26.3, ABG O2 Saturation 82 L*, ABG Base Excess 0.9, Hiram Test Patient unable, Vent Rate 18/8, rr 18 03/19/20 03:51: POC Glucose 107 03/19/20 07:25: Sodium 139, Potassium 4.0, Chloride 99, Carbon Dioxide 27, Anion Gap 17.0 H, BUN 22 H, Creatinine 0.80, Estimated Creat Clear 128, Estimated GFR 98, Est GFR ( Amer) 118, Glucose 109 H, Calcium 8.3 L, Magnesium 2.1, Total Bilirubin 1.1, AST 68 H D, ALT 24, Alkaline Phosphatase 107, Total Protein 7.7, Albumin 3.3 L D, Globulin 4.4 H, Albumin/Globulin Ratio 0.8 L I & O for Last 24 hours: Intake & Output 03/16/20 03/17/20 03/18/20 03/19/20 11:59 11:59 11:59 11:59 Intake Total 1320 / 1320 1180 / 1180 1020 / 1020 1431 / 1431 Output Total 900 / 900 1974 / 1974 1750 / 1750 3430 / 3430 Balance 420 / 420 -795 / -795 -730 / -730 -1998 / Weight 261 lb 3 oz 268 lb 1.992 oz 265 lb 4.8 oz 264 lb Microbiology Reports for the Last 24 Hours: Microbiology 03/13/20 15:53 Blood Blood Culture - Final NO GROWTH AFTER 5 DAYS 03/13/20 15:53 Blood Blood Culture - Final NO GROWTH AFTER 5 DAYS Narrative: Patient is intubated, sedated. Vital signs reviewed. Lungs have symmetric air expansion but lots of rhonchi and crackles bilaterally. Abdomen is soft. Good distal perfusion. No swelling. Assessment and Plan (1) Acute hypoxemic respiratory failure due to COVID-19 Status: Acute Category: Medical Code(s): U07.1 - COVID-19; J96.01 - Acute respiratory failure with hypoxia (2) Pneumonia due to COVID-19 virus Status: Acute Category: Medical Code(s): U07.1 - COVID-19; J12.82 - Pneumonia due to coronavirus disease 2019 (3) Pulmonary emboli Status: Acute Qualifiers: Pulmonary embolism type: multiple subsegmental (without acute cor pulmonale) Qualified Code(s): I26.94 - Multiple subsegmental pulmonary emboli without acute cor pulmonale Category: Medical Code(s): I26.99 - Other pulmonary embolism without acute cor pulmonale (4) Respiratory failure Status: Acute Qualifiers: Chronicity: acute Respiratory failure complication: hypoxia Qualified Code(s): J96.01 - Acute respiratory failure with hypoxia Category: Medical Code(s):
[2020-03-19 09:00] LABS: MANUAL DIFFERENTIAL MANUAL DIFFERENTIAL (MANUAL DIFF)
[2020-03-19 09:20] LABS: ABG Base Excess 2.4 mmol/L (-2.4-2.3); ABG HCO3 27.7 mmhg (22.0-26.0); ABG Oxygen Saturation 85 % (90-100); ABG PCO2 49.5 mmhg (35.0-45.0); ABG PH 7.37 mmol/L (7.35-7.45); ABG PO2 52.2 mmhg (80-100); ABG TCO2 29.2 mmhg (23-27)
--- NOTE | 2020-03-19 09:22 | PC.NURSE ---
Dr. Astorga reports that pt has a bed @ . Dr. Shell has accepted pt. Pt will go to 10th floor, [facility], room 236. Attempted to call report to [facility] RN but she is busy @ the moment and will call back.
[2020-03-19 09:31] LABS: Allen's Test Acceptable; Oxygen 100 %; PEEP 18; Source Right Radial; Tidal Volume 440; Vent Rate 28
--- NOTE | 2020-03-19 10:11 | PC.NURSE ---
report called to Love FIORE @ [facility]. Also called [facility] (Aaron).
--- NOTE | 2020-03-19 10:30 | PC.NURSE ---
called and updated her. 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
--- NOTE | 2020-03-19 10:49 | PC.NURSE ---
[facility] arrived. Report given.
[2020-03-19 11:01] LABS: Lymphocytes % 12 % (10-50); Monocytes % 7 % (2-9); Neutrophils % 81 % (42-76); Platelet Estimate Normal; RBC Morphology Normal; Total Cells Counted 100
--- NOTE | 2020-03-19 11:18 | PC.NURSE ---
pt has left with [facility] enroute to [facility]
--- NOTE | 2020-03-19 11:33 | PC.NURSE ---
attempted to complete CRE rectal swab but the ICU didn't have the swabs available. Called down to lab this AM and requested them.
--- NOTE | 2020-04-21 09:27 | HMH.DCSUM ---
General - General Admission date:: 03/13/20 Discharge date: 03/19/20 HPI HPI: 64-year-old white male with multiple comorbidities including morbid obesity, major depression with bipolar features and parkinsonism who was discharged from the hospital after an overnight stay for Covid pneumonitis with home oxygen, after 1 day of fairly good performance at home he became increasingly dyspneic with O2 saturations into the 60s off oxygen and was brought back to the emergency department, work-up revealed bilateral subsegmental pulmonary emboli and bilateral pneumonitis with requirement for BiPAP support and he was admitted to hospital for treatment of the above and ongoing respiratory support. Hospital Course Hospital Course: Patient was admitted the hospital, required significant oxygen and was placed on BiPAP, continued to progress through hypoxic respiratory failure given his pulmonary embolism and worsening viral pneumonitis secondary to peters virus 19. Initially patient wished to be a DNR status but this changed over the next couple of days as the family became more involved. Patient continued to decompensate and was intubated the night before transfer. He began to require significant pressor support and higher lung pressures. As a result of needing intensive tertiary care, proning, and pulmonary critical care involvement patient was transferred to [facility] on 03/19/20. Objective Vital signs: Temp Pulse Resp BP Pulse Ox 98.4 F 143 H 36 H 104/65 L 91 L 03/19/20 10:47 03/19/20 10:47 03/19/20 10:47 03/19/20 10:47 03/19/20 10:47 severe distress, morbidly obese - *Routine HEENT Exam Head: Present: normocephalic Eye: Present: EOMI, PERRL ENT: Present: mucous membranes moist - *Routine Neck Exam Present: supple - *Routine Respiratory Exam Present: patient mechanically ventilated, rales, respiratory distress, rhonchi, wheezes - *Routine Cardiovascular Exam Present: RRR - *Routine Abdominal Exam Present: soft, normoactive bowel sounds, obese. Absent: tenderness - *Routine Extremities Exam Present: edema, extremity cold to touch. Absent: cyanosis, clubbing - *Routine Skin Exam Present: cyanosis, pallor. Absent: rash - *Routine Neurological Exam Present: altered mental status DS: Diagnosis - Discharge Diagnosis (1) Acute hypoxemic respiratory failure due to COVID-19 Status: Acute (2) Pneumonia due to COVID-19 virus Status: Acute (3) Pulmonary emboli Status: Acute (4) Respiratory failure Status: Acute (5) Obesity Status: Chronic (6) Parkinson disease Status: Chronic Discharge Plan - Patient Discharge Instructions ACTIVITY: Continue current activity Patient Instructions: DI for Pulmonary Embolism, DI for Respiratory Failure, DI for COVID-19 (Suspected or Confirmed ), Preventing the Spread of Coronavirus Discharge Instructions Forms: Transfer Record - Follow up Plan Disposition: Xfer Short-Term Hosp Home Medications: Home Medications Medication Instructions Recorded Confirmed Type Carbidopa/Levodopa 2 each PO TID 01/08/20 03/13/20 History [Carbidopa/Levodopa 25/100mg Tablet] Venlafaxine HCl [Effexor XR 75mg 225 mg PO DAILY 01/08/20 03/13/20 History capsule] Benzonatate [Benzonatate 200mg Cap] 225 mg PO TID PRN 03/08/20 03/13/20 History Ergocalciferol (Vitamin D2) 1,250 mcg PO DIRECTED 03/08/20 03/13/20 History [Vitamin D2] dexAMETHasone [Decadron 4mg tablet] 4 mg PO BID 03/08/20 03/13/20 History Prescriptions/Medication Reconciliation: Continued Carbidopa/Levodopa [Carbidopa/Levodopa 25/100mg Tablet] 2 each PO TID Benzonatate [Benzonatate 200mg Cap] 225 mg PO TID PRN PRN Reason: Cough Venlafaxine HCl [Effexor XR 75mg capsule] 225 mg PO DAILY dexAMETHasone [Decadron 4mg tablet] 4 mg PO BID Ergocalciferol (Vitamin D2) [Vitamin D2] 1,250 mcg PO DIRECTED Discontinued
== END 2020-03-19 11:15 | disposition short-term general hospital (02) | DRG 208 ==
LOC: ER 18:25 → 2ND 19:49 → ICU 03-18 01:34
PROVIDERS: Admitting Provider Internal Medicine Adolescent Medicine; Emergency Provider Emergency Medicine; PCP Internal Medicine Adolescent Medicine; Visit Provider Internal Medicine Adolescent Medicine
DX: U07.1 COVID-19; J12.82 Pneumonia due to coronavirus disease 2019; J96.01 Acute respiratory failure with hypoxia; I26.94 Multiple subsegmental thrombotic pulmonary emboli without acute cor pulmonale; G20 Parkinson's disease; I10 Essential (primary) hypertension; Z79.899 Other long term (current) drug therapy
CPT/HCPCS: 31500; 94002; 36415; 71045; 71275; 80048; 80053; 81001; 82803; 82962; 83605; 83735; 83880; 84145; 84484; 85007; 85025; 85378; 85651; 87040; 87070; 87205; 93970; 94660; 94761; 97110; 97161; 97165; 97530; 99285; J1956; Q9967